=== PATIENT | male | born 1975 | race Caucasian/White ===

== ENCOUNTER 2022-06-08 14:20 | Outpatient (AMB) | payer MEDICARE, MEDICAID, SELFPAY ==
--- NOTE | 2022-06-04 16:04 | MHC.OFFVIS ---
Intake Intake Visit Reasons: Erectile dysfunction Intake Note: New patient is present for erectile dysfunction Boatwright Required: No Allergies No Known Allergies Allergy (Unverified 08/15/23 11:23) HPI HPI Comments History of Present Illness Details Luis Armando rodriguez [place]orese-speaking male. He is a patient of . He is seen for the following urologic conditions - erectile dysfunction setting of diabetes - low libido - chronic opiate therapy [place]se translation provided by qualified neuropsychology medical consultant Erectile dysfunction Progressive Unable to maintain erection Trial low-dose daily tadalafil Three-month follow-up [facility] Medical History (System 08/15/23 @ 11:23 by Larissa Wiggins) Diabetes High cholesterol HTN (hypertension), benign Surgical History (System 08/15/23 @ 11:23 by Larissa Wiggins) H/O lumbar discectomy Hx of tonsillectomy Review of Systems Const Denies chills and Denies fever(s) Card Reports no additional complaints and Denies syncope Resp Denies cough GI Denies abdominal pain and Denies heartburn Reports as per HPI and Denies change in libido Neuro Denies syncope Psych Denies change in libido Endo Denies change in libido Physical Exam Const General: cooperative, healthy appearing, comfortable and no acute distress Orientation/consciousness: patient oriented x3 HEENT Face and sinus: Yes normal facial exam Mouth: moist mucous membranes Neck Neck: Yes normal visual inspection, Yes full ROM and Yes trachea midline Chest Chest palpation & inspection: normal inspection of the chest Resp Effort & Inspection: normal respiratory effort, able to speak in complete sentences and no respiratory distress GI Inspection: Yes normal to inspection Back/Spine/Pelvis Cervical Spine: normal cervical lordosis Thoracic/Lumbar Spine: thoracic and lumbar spine normal to inspection Skin General skin exam: no rashes or lesions noted Neuro General: patient oriented x3, gait normal, tone normal and moves all extremities Extrem General: Yes normal to inspection and Yes capillary refill normal Assessment & Plan Assessment & Plan (1) Erectile dysfunction associated with type 2 diabetes mellitus: Code(s): E11.69 - Type 2 diabetes mellitus with other specified complication; N52.1 - Erectile dysfunction due to diseases classified elsewhere Plan Three-month follow-up Orders: Orders Testosterone, Free/Total 06/08/22 E11.69 - Type 2 diabetes mellitus with other specified complication, N52.1 - Erectile dysfunction due to diseases classified elsewhere Estradiol Ultra Sensitive 06/08/22 E11.69 - Type 2 diabetes mellitus with other specified complication, N52.1 - Erectile dysfunction due to diseases classified elsewhere Hemoglobin A1c 06/08/22 E11.69 - Type 2 diabetes mellitus with other specified complication, N52.1 - Erectile dysfunction due to diseases classified elsewhere Medications: New tadalafil 20 mg PO ONCE PRN 30 tabs 0RF sexual activity 30 days E11.69 - Type 2 diabetes mellitus with other specified complication, N52.1 - Erectile dysfunction due to diseases classified elsewhere tadalafil 5 mg PO DAILY 90 tabs 0RF sexual activity 90 days E11.69 - Type 2 diabetes mellitus with other specified complication, N52.1 - Erectile dysfunction due to diseases classified elsewhere Patient Instructions: Imaging studies, laboratory and physical exam results were discussed and reviewed in detail. No major barriers to patient understanding were identified. An opportunity to ask questions regarding the treatment plan was provided. All questions were answered. The patient expressed understanding and agreement with the above treatment plan. The patient is aware they should contact our office by phone for worsening of their current condition or the appearance of new urologic symptoms. Compliance is encouraged with any medications and followup testing that is ordered. It is a privilege to participate in the urologic care of your patient. If you have any questions or concerns regarding treatment for the above conditions, or other urologic issues, please do not hesitate to contact me. The office telephone contact is [phone]. This note is constructed using voice recognition software. While every effort has been made to ensure accuracy fire marshal errors may have been included. Yours sincerely, Dr John Kumar MD, [facility] - Urology Providers of Expert, Compassionate Care for the Genitourinary System Coding Level of Care Code New Pt Level 4 (49402) Diagnoses Erectile dysfunction associated with type 2 diabetes mellitus E11.69; N52.1
--- OUTSIDE RECORDS SUMMARY | 2022-06-08 14:23 | XMS_ITS | Continuity of Care Document ---
:1975 Author Organization [facility] Address [address] [place] [address]- Care Team Providers Name Role Phone Almaz Velásquez MD Primary Care Physician [place] [facility] [place] 02/25/20 - 03/26/20 [facility] [address] [place] [address]- [facility] Attending Physician: Bertin Menchaca Admitting Physician: Bertin Menchaca Referring Physician: Bertin Menchaca Allergies, Adverse Reactions, Alerts Substance Reaction Severity Status NKA Active Medications Lotrimin AF 1% topical cream 1 application, Topically, 2 times a day, apply to affected area, # 30 Gm, 0 Refills, Maintenance, 05/09/16 16:35:30, Cream Start Date: 05/09/16 Status: Ordered
== END 2022-06-08 14:59 | disposition home or self-care (01) ==
LOC: HO.HUSH 14:20
PROVIDERS: PCP Registered Nurse; Visit Provider Urology
DX: E11.69 Type 2 diabetes mellitus with other specified complication (principal); N52.1 Erectile dysfunction due to diseases classified elsewhere
CPT/HCPCS: 99204; 99499

== ENCOUNTER → 2022-06-08 14:20 | Outpatient (BNVA) | payer MEDICARE, MEDICAID, SELFPAY | PROVIDERS: PCP Registered Nurse; Visit Provider Urology | DX: E11.69 Type 2 diabetes mellitus with other specified complication (principal); N52.1 Erectile dysfunction due to diseases classified elsewhere | CPT/HCPCS: 99202 ==

== ENCOUNTER 2022-11-27 11:44 | Outpatient (REF) | payer MEDICARE, MEDICAID, SELFPAY ==
[2022-11-27 12:35] LABS: Estimated Average Glucose 143 mg/dL; Hemoglobin A1c % 6.6 %
[2022-12-02 23:14] LABS: Estradiol Ultra Sensitive 27 pg/mL (< OR = 29)
[2022-12-04 14:33] LABS: Testosterone, Free 46.5 pg/mL (35.0-155.0); Testosterone, Total 229 ng/dL (250-1100)
== END 2022-11-27 11:45 | disposition home or self-care (01) ==
LOC: HO.LAB 11:44
PROVIDERS: PCP Registered Nurse; Visit Provider Urology
DX: E11.69 Type 2 diabetes mellitus with other specified complication (principal); N52.1 Erectile dysfunction due to diseases classified elsewhere
CPT/HCPCS: 36415; 82670; 83036; 84402; 84403

== ENCOUNTER → 2022-12-04 15:27 | Outpatient (BNVA) | payer MEDICARE, MEDICAID, SELFPAY | PROVIDERS: PCP Registered Nurse; Visit Provider Urology | DX: E11.69 Type 2 diabetes mellitus with other specified complication (principal); N52.1 Erectile dysfunction due to diseases classified elsewhere; Z79.891 Long term (current) use of opiate analgesic | CPT/HCPCS: Q3014 ==

== ENCOUNTER 2023-05-07 08:50 | Outpatient (REF) | payer MEDICARE, MEDICAID, SELFPAY ==
[2023-05-09 08:25] LABS: RPR Rapid Plasma Reagin NON-REACTIVE (NON-REACTIVE)
[2023-05-10 14:18] LABS: HCV Log PCR <1.18 NOT DETECTED Log IU/mL (NOT DETECTED); HepC Viral Load <15 NOT DETECTED IU/mL (NOT DETECTED)
== END 2023-05-07 08:51 | disposition home or self-care (01) ==
LOC: HO.CHCLDS 08:50
PROVIDERS: Visit Provider Registered Nurse
DX: Z00.00 Encounter for general adult medical examination without abnormal findings (principal); Z11.4 Encounter for screening for human immunodeficiency virus [HIV]; E78.00 Pure hypercholesterolemia, unspecified; E11.9 Type 2 diabetes mellitus without complications; I10 Essential (primary) hypertension
CPT/HCPCS: 36415; 80053; 80061; 82043; 82570; 84443; 85025; 86592; 87389; 87522

== ENCOUNTER 2023-09-17 08:35 | Outpatient (REF) | payer MEDICARE, MEDICAID, SELFPAY ==
[2023-09-17 12:00] LABS: Alanine Aminotransferase 22 U/L (0-40); Albumin Level 4.2 g/dL (3.5-5.0); Alkaline Phosphatase 55 U/L (39-117); Aspartate Amino Transferase 22 U/L (5-37); Bilirubin Direct 0.2 mg/dL (0.0-0.5); Bilirubin Total 0.3 mg/dL (0.0-1.0); Cholesterol 135 mg/dL (<200); HDL Cholesterol 47 mg/dL (>40); LDL Cholesterol Calculated 63 mg/dL (<100); Total Protein 7.9 g/dL (6.5-8.0); Triglycerides 125 mg/dL (<150)
[2023-09-22 09:09] LABS: Testosterone, Free 34.6 pg/mL (35.0-155.0); Testosterone, Total 184 ng/dL (250-1100)
== END 2023-09-17 08:36 | disposition home or self-care (01) ==
LOC: HO.HHCL 08:35
PROVIDERS: Registered Nurse; Visit Provider Urology
DX: E11.69 Type 2 diabetes mellitus with other specified complication (principal); N52.1 Erectile dysfunction due to diseases classified elsewhere; E78.00 Pure hypercholesterolemia, unspecified
CPT/HCPCS: 36415; 80061; 80076; 84402; 84403

== ENCOUNTER 2023-09-26 11:06 | Outpatient (AMB) | payer MEDICARE, MEDICAID, SELFPAY ==
--- NOTE | 2023-09-26 11:08 | A.OFFVIS_ITS ---
Intake Intake Visit Reasons: 6m/Testo(pending)Confirmed Intake Note: Patient presents today for a telehealth follow-up Meds- Tadalafil Allergies to Antibiotic- No Known Allergies Blood Thinner- None Cash Applications Analyst Required: Yes Allergies No Known Allergies Allergy (Verified 09/26/23 11:11) HPI HPI Comments History of Present Illness Details Luis Armando is a pleasant Welsh-speaking male. He is a patient of . He is seen for the following urologic conditions - erectile dysfunction setting of diabet es - low libido - chronic opiate therapy Telemedicine Evaluation 15 min Consultation [employer] Cot[employer] Video attempted Welsh translation provided by qualified biomedical equipment support specialist 6 month f/u Good effect with daily tadalafil for erections Testosterone remains depressed Erectile dysfunction in setting of diabetes Progressive Concurrent diagnosis includes chronic opiate therapy Diabetic medications include metformin and Trulicity Laboratory - T 12/18 230 F 46 HBA1c 6.6%, 09/21 T 185 FT 35 Initial therapy 5 mg daily tadalafil 20 mg on demand PFSH Medical History Diabetes High cholesterol HTN (hypertension), benign Surgical History H/O lumbar discectomy Hx of tonsillectomy Review of Systems Const All systems reviewed & are unremarkable except as noted in HPI and below Reports no additional complaints Resp Reports no additional complaints GI Reports no additional complaints Reports as per HPI Musc Reports no additional complaints Physical Exam Telemedicine evaluation Appropriate responses Regular breathing rate and rhythm HEENT Head: Yes normal to inspection Ears: hearing grossly normal bilaterally Eyes General: appearance normal, both eyes and all related structures Neck Neck: Yes normal visual inspection Chest Chest palpation & inspection: normal inspection of the chest Resp Effort & Inspection: normal respiratory effort and able to speak in complete sentences Assessment & Plan Assessment & Plan (1) Erectile dysfunction associated with type 2 diabetes mellitus: Code(s): E11.69 - Type 2 diabetes mellitus with other specified complication; N52.1 - Erectile dysfunction due to diseases classified elsewhere Plan Six-month follow-up lab work Orders: Orders Testosterone, Total 06/04/23 E11.69 - Type 2 diabetes mellitus with other specified complication, N52.1 - Erectile dysfunction due to diseases classified elsewhere Testosterone, Total 6 Months E11.69 - Type 2 diabetes mellitus with other specified complication, N52.1 - Erectile dysfunction due to diseases classified elsewhere Medications: Refilled tadalafil 20 mg PO ONCE 30 days PRN 30 tabs 5RF sexual activity E11.69 - Type 2 diabetes mellitus with other specified complication, N52.1 - Erectile dysfunction due to diseases classified elsewhere tadalafil 5 mg PO DAILY 90 days 90 tabs 1RF sexual activity E11.69 - Type 2 diabetes mellitus with other specified complication, N52.1 - Erectile dysfunction due to diseases classified elsewhere Patient Instructions: Imaging studies, laboratory and physical exam results were discussed and reviewed in detail. No major barriers to patient understanding were identified. An opportunity to ask questions regarding the treatment plan was provided. All questions were answered. The patient expressed understanding and agreement with the above treatment plan. The patient is aware they should contact our office by phone for worsening of their current condition or the appearance of new urologic symptoms. Compliance is encouraged with any medications and followup testing that is ordered. It is a privilege to participate in the urologic care of your patient. If you have any questions or concerns regarding treatment for the above conditions, or other urologic issues, please do not hesitate to contact me. The office telephone contact is [phone]. This note is constructed using voice recognition software. While every effort has been made to ensure accuracy shank sander errors may have been included. Yours sincerely, Dr John Kumar MD, [facility] - Urology Providers of Expert, Compassionate Care for the Genitourinary System Telehealth Telehealth Location of provider rendering services: practice address Location of patient: address on file Patient Identification confirmed using: Name, : Yes Telehealth method: video Patient verbally consented to treatment: Yes Patient verbally consented to billing insurance company: Yes Patient informed of any privacy concerns related to visit: Yes Coding Level of Care Code Est Pt Level 3 (50280) Diagnoses Erectile dysfunction associated with type 2 diabetes mellitus E11.69; N52.1
== END 2023-09-26 14:53 | disposition home or self-care (01) ==
LOC: HO.HUSH 11:07
PROVIDERS: PCP Registered Nurse; Visit Provider Urology
DX: E11.69 Type 2 diabetes mellitus with other specified complication (principal); N52.1 Erectile dysfunction due to diseases classified elsewhere
CPT/HCPCS: 99213

== ENCOUNTER → 2023-09-26 11:06 | Outpatient (BNVA) | payer MEDICARE, MEDICAID, SELFPAY | PROVIDERS: PCP Registered Nurse; Visit Provider Urology | DX: E11.69 Type 2 diabetes mellitus with other specified complication (principal); N52.1 Erectile dysfunction due to diseases classified elsewhere; Z79.84 Long term (current) use of oral hypoglycemic drugs; Z79.85 Long-term (current) use of injectable non-insulin antidiabetic drugs | CPT/HCPCS: 99212 ==

== ENCOUNTER 2023-11-25 11:35 | Outpatient (REF) | payer MEDICARE, MEDICAID, SELFPAY ==
[2023-11-28 08:58] LABS: TS Negative Control Passed; TS Panel A 0; TS Panel B 0; TS Positive Control Passed; TSpotTB Negative (Negative)
== END 2023-11-25 11:36 | disposition home or self-care (01) ==
LOC: HO.CHCLDS 11:35
PROVIDERS: Visit Provider Registered Nurse
DX: Z11.1 Encounter for screening for respiratory tuberculosis (principal)
CPT/HCPCS: 36415; 86481

== ENCOUNTER 2024-03-27 11:17 | Outpatient (AMB) | payer MEDICARE, MEDICAID, SELFPAY ==
--- NOTE | 2024-03-27 11:35 | A.OFFVIS_ITS ---
Intake Visit Reasons: 6m follow up(No labs done) Intake Note: Patient is Present for Follow Up Urology Medication:Tadalafil Antibiotic Allergies:none Blood Thinners:none Stitching Department Supervisor Required: Yes Allergies No Known Allergies Allergy (Verified 09/26/23 11:11) HPI Comments Details: Luis Armando is a pleasant Afghan-speaking male. He is a patient of . He is seen for the following urologic conditions - erectile dysfunction setting of diabetes - low libido - chronic opiate therapy Telemedicine Evaluation 15 min Consultation [employer] Coty Video attempted Afghan translation provided by qualified chief medical officer 6 month f/u Good effect with daily tadalafil for erections Testosterone remains depressed Trial testosterone gel Erectile dysfunction in setting of diabetes Progressive Concurrent diagnosis includes chronic opiate therapy Diabetic medications include metformin and Trulicity Laboratory - T 12/18 230 F 46 HBA1c 6.6%, 09/21 T 185 FT 35 Initial therapy 5 mg daily tadalafil 20 mg on demand PFSH Medical History Diabetes High cholesterol HTN (hypertension), benign Surgical History H/O lumbar discectomy Hx of tonsillectomy Assessment & Plan Assessment & Plan (1) Hypogonadism in male: Code(s): E29.1 - Testicular hypofunction Category: Medical (2) Erectile dysfunction associated with type 2 diabetes mellitus: Code(s): E11.69 - Type 2 diabetes mellitus with other specified complication; N52.1 - Erectile dysfunction due to diseases classified elsewhere Category: Medical Plan Trial testosterone gel Three-month follow-up labs Orders: Orders Testosterone, Total 3 Months E29.1 - Testicular hypofunction Medications: New testosterone 1 packet transdermal DAILY 150 grams 5RF 30 days E29.1 - Testicular hypofunction Coding Level of Care Code Est Pt Level 4 (05823) Diagnoses Hypogonadism in male E29.1 Erectile dysfunction associated with type 2 diabetes mellitus E11.69; N52.1
== END 2024-03-27 12:17 | disposition home or self-care (01) ==
PROVIDERS: PCP Registered Nurse; Visit Provider Urology
DX: E29.1 Testicular hypofunction (principal); E11.69 Type 2 diabetes mellitus with other specified complication; N52.1 Erectile dysfunction due to diseases classified elsewhere
CPT/HCPCS: 99214

== ENCOUNTER → 2024-03-27 11:17 | Outpatient (BNVA) | payer MEDICARE, MEDICAID, SELFPAY | PROVIDERS: PCP Registered Nurse; Visit Provider Urology | DX: E29.1 Testicular hypofunction (principal); E11.69 Type 2 diabetes mellitus with other specified complication; N52.1 Erectile dysfunction due to diseases classified elsewhere; R68.82 Decreased libido; Z79.891 Long term (current) use of opiate analgesic; Z79.84 Long term (current) use of oral hypoglycemic drugs; Z79.85 Long-term (current) use of injectable non-insulin antidiabetic drugs | CPT/HCPCS: 99212 ==

== ENCOUNTER 2024-06-05 07:18 | Outpatient (REF) | payer MEDICARE, SELFPAY ==
[2024-06-10 15:24] LABS: Testosterone, Total 289 ng/dL (250-1100)
== END 2024-06-05 07:19 | disposition home or self-care (01) ==
LOC: HO.LAB 07:18
PROVIDERS: PCP Registered Nurse; Visit Provider Urology
DX: E11.69 Type 2 diabetes mellitus with other specified complication (principal); N52.1 Erectile dysfunction due to diseases classified elsewhere
CPT/HCPCS: 36415; 84403

== ENCOUNTER 2024-06-16 15:09 | Outpatient (AMB) | payer MEDICARE, MEDICAID, SELFPAY ==
--- NOTE | 2024-06-16 16:01 | A.OFFVIS_ITS ---
Intake Visit Reasons: 3m/Testosterone(set) Intake Note: Patient is present for Testosterone follow up Urology Med: Tadalafil, Testosterone Antibiotic Allergy: None Blood Thinner: None LAB: 06/05/2024 - Total Testosterone- 289 [facility] Practitioner Required: No Accompanied by: Self / Same As Patient Allergies No Known Allergies Allergy (Verified 06/16/24 16:05) HPI Comments Details: Luis Armando is a pleasant Barbadian-speaking male. He is a patient of . He is seen for the following urologic conditions - erectile dysfunction setting of diabetes - low libido - chronic opiate therapy Barbadian translation provided by qualified medical practice assistant 6 month f/u Feels significantly improved on testosterone 1 packet daily Represcribed for 6 months Good effect with daily tadalafil for erections Testosterone remains depressed - in setting of diabetes, chronic opioid use Erectile dysfunction in setting of diabetes Progressive Concurrent diagnosis includes chronic opiate therapy Diabetic medications include metformin and Trulicity Laboratory - T 12/18 230 F 46 HBA1c 6.6%, 09/21 T 185 FT 35, 06/21 T 290 Initial therapy 5 mg daily tadalafil 20 mg on demand [facility] Medical History Diabetes High cholesterol HTN (hypertension), benign Surgical History H/O lumbar discectomy Hx of tonsillectomy Review of Systems Const Denies chills and Denies fever(s) Card Reports no additional complaints and Denies syncope Resp Denies cough GI Denies abdominal pain and Denies heartburn Reports as per HPI and Denies change in libido Neuro Denies syncope Psych Denies change in libido Endo Denies change in libido Physical Exam Const General: cooperative, healthy appearing, comfortable and no acute distress Orientation/consciousness: patient oriented x3 HEENT Face and sinus: Yes normal facial exam Mouth: moist mucous membranes Neck Neck: Yes normal visual inspection, Yes full ROM and Yes trachea midline Chest Chest palpation & inspection: normal inspection of the chest Resp Effort & Inspection: normal respiratory effort, able to speak in complete sentences and no respiratory distress GI Inspection: Yes normal to inspection Back/Spine/Pelvis Cervical Spine: normal cervical lordosis Thoracic/Lumbar Spine: thoracic and lumbar spine normal to inspection Skin General skin exam: no rashes or lesions noted Neuro General: patient oriented x3, gait normal, tone normal and moves all extremities Extrem General: Yes normal to inspection and Yes capillary refill normal Assessment & Plan Assessment & Plan (1) Erectile dysfunction associated with type 2 diabetes mellitus: Code(s): E11.69 - Type 2 diabetes mellitus with other specified complication; N52.1 - Erectile dysfunction due to diseases classified elsewhere Category: Medical (2) Hypogonadism in male: Code(s): E29.1 - Testicular hypofunction Category: Medical Plan Six-month follow-up lab work office Orders: Orders Prostate Specific Antigen 6 Months E29.1 - Testicular hypofunction Testosterone, Total 6 Months E29.1 - Testicular hypofunction Complete Blood Count no Diff 6 Months E29.1 - Testicular hypofunction Patient Instructions: Imaging studies, laboratory and physical exam results were discussed and reviewed in detail. No major barriers to patient understanding were identified. An opportunity to ask questions regarding the treatment plan was provided. All questions were answered. The patient expressed understanding and agreement with the above treatment plan. The patient is aware they should contact our office by phone for worsening of their current condition or the appearance of new urologic symptoms. Compliance is encouraged with any medications and followup testing that is ordered. It is a privilege to participate in the urologic care of your patient. If you have any questions or concerns regarding treatment for the above conditions, or other urologic issues, please do not hesitate to contact me. The office telephone contact is [phone]. This note is constructed using voice recognition software. While every effort has been made to ensure accuracy fruit culler errors may have been included. Yours sincerely, Dr John Kumar MD, [facility] - Urology Providers of Expert, Compassionate Care for the Genitourinary System Coding Level of Care Code Est Pt Level 3 (51039) Diagnoses Erectile dysfunction associated with type 2 diabetes mellitus E11.69; N52.1 Hypogonadism in male E29.1
== END 2024-06-16 16:55 | disposition home or self-care (01) ==
PROVIDERS: PCP Registered Nurse; Visit Provider Urology
DX: E11.69 Type 2 diabetes mellitus with other specified complication (principal); N52.1 Erectile dysfunction due to diseases classified elsewhere; E29.1 Testicular hypofunction
CPT/HCPCS: 99213

== ENCOUNTER → 2024-06-16 15:09 | Outpatient (BNVA) | payer MEDICARE, SELFPAY | PROVIDERS: PCP Registered Nurse; Visit Provider Urology | DX: E11.69 Type 2 diabetes mellitus with other specified complication (principal); N52.1 Erectile dysfunction due to diseases classified elsewhere; E29.1 Testicular hypofunction | CPT/HCPCS: 99212 ==

== ENCOUNTER 2024-12-03 07:12 | Outpatient (REF) | payer MEDICARE, MEDICAID, SELFPAY ==
--- OUTSIDE RECORDS SUMMARY | 2024-12-03 07:13 | XMS_ITS | Encounter Summary ---
Author Organization [employer] Address [address] [place] [address] Care Team Providers Care Bark Grinder Name Role Phone Almaz Osuna Primary Care Provider [phone] John Kumar MD Unavailable [phone] Reason for Visit * Reason Comments Med Refill Encounter Details Date Type Department Care Team ([facility] Contact Info) Description 12/25/2022 Refill [facility] MEDICINE [address] [place] [address] Almaz Osuna FNP [address] [place] [address] Lumbar disc herniation Social History Tobacco Use Types Packs/Day Years Used Date Smoking Tobacco: Never Smokeless Tobacco: Never Alcohol Use Standard Drinks/Week Comments Yes 0 (1 standard drink = 0.6 oz pur e alcohol) Rare occassions Sex and Gender Information Value Date Recorded Sex Assigned at Male 05/28/2022 10:15 AM EDT Legal Sex Male 10:15 AM EDT Gender Identity Male 05/28/2022 10:15 AM EDT Sexual Orientation Straight 05/28/2022 10 :15 AM EDT COVID-19 Exposure Response Date Recorded In the last 10 days, have yo u been in contact with someone who was confirmed or suspected to have Coronavirus/COVID-19? No / Unsure 12/05/2022 8:44 AM EDT documented as of this encounter Plan of Treatment Upcoming Encounters Date Type Department Care Team ([facility] Contact Info) Description 12/03/2024 11:00 AM EDT Clinical Support [facility] CH[facility] MED & PEDS [address] [place] [address] Nasrin Skinner, RN [address] [place] [address] 01/22/2025 2:30 PM EDT Office Visit [facility] MED [facility] PEDS [address] [place] [address] Almaz Osuna FNP [address] [place] [address] 05/07/2025 8:00 AM EDT Office Visit [facility] ADULT DENTAL [address] [place] [address] Dora, Mariaa [address] [place] [address] documented as of this encounter Visit Diagnoses Diagnosis Lumbar disc herniation Displacement of lumbar intervertebral disc without myelopathy documented in this encounter Care Teams Bark Grinder Relationship Specialty Start Date End Date Almaz Osuna FNP [address] [place] [address] PCP - General Family Medicine 03/27/22 John Kumar MD [address] [place] [address] Urology 09/07/24 documented as of this encounter
--- OUTSIDE RECORDS SUMMARY | 2024-12-03 07:13 | XMS_ITS | Clinical Summary ---
Author Organization [facility], Address [address] [place] [address] [place] [address] Phone Care Team Providers Care Configuration Consultant Name Role Phone Ally Parra NP Primary Care Provider [phone] Allergies No known active allergies Medications aspirin 81 MG tablet Take 81 mg by mouth 1 (one) time each day Active hydroCHLOROthia zide (HYDRODIURIL) 25 MG tablet Take 25 mg by mouth 1 (one) time each day Active lisinopril (PRINIVIL,ZESTR IL) 40 MG tablet Take 40 mg by mouth 1 (one) time each day Active metFORMIN (GLUCOPHAGE) 1000 MG tablet Take 1,000 mg by mouth 2 (two) times a day with meals Active metoprolol succinate XL (TOPROL-XL) 200 MG 24 hr tablet Take 200 mg by mouth 1 (one) time each day Do not crush or chew. Active omeprazole (PriLOSEC) [address] capsule Take 20 mg by mouth 1 (one) time each day Do not crush or chew. Active pravastatin (PRAVACHOL) 80 MG tablet Take 80 mg by mouth 1 (one) time each day Active amLODIPine (NORVASC) 10 MG tablet Take 10 mg by mouth 1 (one) time each day Active gabapentin (NEURONTIN) 100 MG capsule Take 100 mg by mouth 3 (three) times a day Active oxyCODONE-aceta minophen (PERCOCET) 10-325 MG per tablet Take 1 tablet by mouth every 6 (six) hours if needed for moderate pain Active fluticasone (FLONASE) 50 MCG/ACT nasal spray Administer 1 spray into each nostril 1 (one) time each day Active Active Problems Problem Noted Date Diagnosed Date Chronic kidney disease, stage 2 (mild) 0 Essential (primary) hypertension 11/13/2019 Type 2 diabetes mellitus without complication Resolved Problems Problem Noted Date Diagnosed Date Resolved Date Obesity 11/17/2019 03/27/2021 Hypercholesterolemia 11/13/2019 021 Social History Tobacco Use Types Packs/Day Years Used Date Smoking Tobacco: Never Smokeless Tobacco: Never Alcohol Use Standard Drinks/Week Comments Yes 0 (1 standard drink = 0.6 oz pur e alcohol) 6pk monthly Sex and Gender Information Value Date Recorded Sex Assigned at Not on file Legal Sex Male 10:15 AM EST Gender Identity Not on file Sexual Orientation Not on file Plan of Treatment Health Maintenance Due Date Last Done Comments Hepatitis B Vaccine (1 of 3 - 19+ 3-dose series) 04/26 Pneumococcal Vaccine: 50+ Years (1 of 2 - PCV) 992 Diabetes: Hemoglobin A1C 11/13/2019 Diabetes: Ophthalmology Exam 11/13/2019 Diabetes: Pedal Pulse Checked 11/13/2019 Diabetes: Sensory Foot Exam 11/13/2019 Diabetes: Visual Foot Exam 11/13/2019 Colorectal Cancer Screening: Annual FOBT 2022 Colorectal Cancer Screening: Colonoscopy 2022 Colorectal Cancer Screening: Sigmoidoscopy 2022 Influenza Vaccine (Season Ended) 2025 Insurance Medicare Medicaid [place] Care Teams Configuration Consultant Relationship Specialty Start Date End Date Ally Parra NP PCP - General Nurse Practitioner 10/01/19
--- OUTSIDE RECORDS SUMMARY | 2024-12-03 07:13 | XMS_ITS | Encounter Summary ---
Author Organization [employer] Address [address] [place] [address] Care Team Providers Care Automatic Maintainer Name Role Phone Almaz Osuna Primary Care Provider John Kumar MD Unavailable [phone] Reason for Visit * Reason Comments Med Refill Encounter Details Date Type Department Care Team ([facility] Contact Info) Description 10/26/2022 Refill [facility] MEDICINE [address] [place] [address] Almaz Osuna FNP [address] [place] [address] Dorsalgia Social History Tobacco Use Types Packs/Day Years [...] suspected to have Coronavirus/COVID-19? No / Unsure 10/22/2022 8:38 AM EDT documented as of this encounter Plan of Treatment Upcoming Encounters Date Type Department Care Team ([facility] Contact Info) Description 12/03/2024 11:00 AM EDT Clinical Support [facility] CH[facility] MED & PEDS [address] [place] [address] Nasrin Skinner, RN [address] [place] [address] 01/22/2025 2:30 PM EDT Office Visit [facility] MED & PEDS [address] [place] [address] Almaz Osuna FNP [address] [place] [address] 05/07/2025 8:00 AM EDT Office Visit [facility] ADULT DENTAL [address] [place] [address] Dora, Mariaa [address] [place] [address] documented as of this encounter Visit Diagnoses Diagnosis Dorsalgia Pain in thoracic spine documented in this encounter Care Teams Automatic Maintainer Relationship Specialty Start Date End Date Almaz Osuna FNP [address] [place] [address] PCP - General Family Medicine 03/27/22 John Kumar MD [address] [place] [address] Urology 09/07/24 documented as of this encounter
--- OUTSIDE RECORDS SUMMARY | 2024-12-03 07:13 | XMS_ITS | Clinical Summary ---
Author Organization Molly Queralt [facility] ity Address [address] [place] [address] Care Team Providers Care Cross Country/Track And Field Coach Name Role Phone Unavailable Primary Care Provider Unavailabl e Social History Tobacco Use Types Packs/Day Years Used Date Smoking Tobacco: Never Assessed Sex and Gender Information Value Date Recorded Sex Assigned at Not on file Legal Sex Male 8:17 PM EST Gender Identity Not on file Sexual Orientation Not on file Plan of Treatment Health Maintenance Due Date Last Done Comments DTaP,Tdap,and Td Vaccines (1 - Tdap) 1992 Hepatitis B Vaccines (1 of 3 - 19+ 3-dose series) 1992 Pneumococcal Vaccine: 50+ Ye ars (1 of 1 - PCV) 2023 Zoster Vaccines (1 of 2) 2023 COVID-19 Vaccine (1 - 2023-2 5 season) 2024 Influenza Vaccine (Season Ended) 2025 HIB Vaccines Aged Out No longer eligi ble based on patient's age to complete this topic HPV Vaccines Aged Out No longer eligi ble based on patient's age to complete this topic Hepatitis A Vaccines Aged Out No long er eligible based on patient's age to complete this topic IPV Vaccines Aged Out No longer eligi ble based on patient's age to complete this topic MMR Vaccines Aged Out No longer eligi ble based on patient's age to complete this topic Meningococcal ACWY Vaccine Aged Out N o longer eligible based on patient's age to complete this topic Meningococcal B Vaccine Aged Out No l onger eligible based on patient's age to complete this topic Pneumococcal Vaccine: Pediat rics (0 to 5 Years) and At-Risk Patients (6 to 64 Years) Aged Out No longer eligible b ased on patient's age to complete this topic RSV Immunization Patients Un javy 20 months Aged Out No longer eligible b ased on patient's age to complete this topic Varicella Vaccines Aged Out No longer eligible based on patient's age to complete this topic
--- OUTSIDE RECORDS SUMMARY | 2024-12-03 07:14 | XMS_ITS | Encounter Summary ---
Author Organization [employer] Address [address] [facility] 7t [place] [address] Care Team Providers Care Welfare Project Manager Name Role Phone Almaz Osuna Primary Care Provider [phone] John Kumar MD Unavailable [phone] Encounter Details Date Type Department Care Team ([facility] st Contact Info) Description 03/27/2024 Orders Only [facility] CHC MED & PEDS [address] [place], [place] [phone] Almaz Osuna FNP [address] [place] [address] Lumbar disc herniation Social History Tobacco Use Types Packs/Day Years Used Date Smoking Tobacco: Never Passive Smoke Exposure: Never Smokeless Tobacco: Never Alcohol Use Standard Drinks/Week Comments Yes 0 (1 standard drink = 0.6 oz pur e alcohol) Rare occassions Depression Answer Date Recorded Patient Health Questionnaire-9 Score 2 04/29/2023 Housing Stability Answer Date Recorded What is your housing situation today? I have carlota patrick 05/15/[address] you li ve. Do you have problems with any of the following? None of the above 05/15/2023 Food Insecurity Answer Date Recorded Within the past 12 months, y ou worried that your food would run out before you got money to buy more: Never True 05/15/2023 Within the past 12 months,th e food you bought just didn't last and you didn't have enough money to get more: Never True Transportation Answer Date Recorded In the past 12 months, has l ack of transportation kept you from medical appts, meetings, work or from getting things needed for daily living? No 05/15/2023 Utilities Answer Date Recorded In the past 12 months, has t he electric, gas, oil or water company threatened to shut off services in your home? No 05/15/2023 Depression Answer Date Recorded Patient Health Questionnaire-2 Score 0 04/29/2023 Sex and Gender Information Value Date Recorded Sex Assigned at Male 05/28/2022 10:15 AM EDT Legal Sex Male 10:15 AM EDT Gender Identity Male 05/28/2022 10:15 AM EDT Sexual Orientation Straight 05/28/2022 10 :15 AM EDT documented as of this encounter Plan of Treatment Upcoming Encounters Date Type Department Care Team (Late st Contact Info) Description 12/03/2024 11:00 AM EDT Clinical Support [facility] MED & PEDS [address] [place] [address] Nasrin Skinner, RN [address] [place] [address] 01/22/2025 2:30 PM EDT Office Visit [facility] MED & PEDS [address] [place] [address] Almaz Osuna, RULING MACHINE SET UP OPERATOR [address] [place] [address] 05/07/2025 8:00 AM EDT Office Visit [facility] ADULT DENTAL [address] [place] [address] Dora, Mariaa [address] [place] [address] documented as of this encounter Procedures Procedure Name Priority Date/Time Associated Diagnosis Comments TESTOSTERONE, TOTAL, MALES (ADULT), IA Routine 06/05/2024 7:31 AM EST Lumbar disc herniation documented in this encounter Results * Testosterone, Total, males (Adult), IA (06/05/2024 7:31 AM EST) Testosterone, Total 289 250 - 1100 ng/dL [facility] Comment:For additional infor stephane, please refer tohttp://education.Inspherion/faq/[email or web address](This link is being provided for informational/educational purposes only.)This test was developed and its analytical performancecharacteristics have been determined by [employer] [place], [place]. It hasnot been cleared or approved by the U.S. Food and DrugAdministration. This assay has been validated pursuantto the CLIA regulations and is used for clinicalpurposes.THIS TEST WAS PERFORMED AT:[employer] [place] [address]IDSUWFMTERRI BECKETT MD,PHD 06/05/2024 7:31 AM EST 06/05/2024 7:34 AM EST us Generic External Data Provider LAB BLOOD ORDERAB LES Final Result [facility] [address] [place] [address] [phone] documented in this encounter Visit Diagnoses Diagnosis Lumbar disc herniation Displacement of lumbar intervertebral disc without myelopathy documented in this encounter Additional Health Concerns Assessment Noted Time PHQ-9 Depression Total Score: 2 04/29/20 23 1:49 PM EDT documented as of this encounter Care Teams Welfare Project Manager Relationship Specialty Start Date End Date Almaz Osuna FNP [address] [place] [address] PCP - General Family Medicine 03/27/22 John Kumar MD [address] [place] [address] Urology 09/07/24 documented as of this encounter
--- OUTSIDE RECORDS SUMMARY | 2024-12-03 07:14 | XMS_ITS | Encounter Summary ---
Author Organization [employer] Address [address] [facility] 7t [place] [address] Care Team Providers Care Photovoltaic Power Systems Engineer Name Role Phone Almaz Osuna Primary Care Provider [phone] John Kumar MD Unavailable [phone] Encounter Details Date Type Department Care Team (Latest Contact Info) Description 09/29/2018 Abstract [facility] CONVERSIONS Dental, Provider, DDS Social History Tobacco Use Types Packs/Day Years [...] Upcoming Encounters Date Type Department Care Team ( st Contact Info) Description 12/03/2024 11:00 AM EDT Clinical Support [facility] MED & PEDS [address] [place] [address] Nasrin Skinner, RN [address] [place] [address] 01/22/2025 2:30 PM EDT Office Visit [facility] MED & PEDS [address] [place] [address] Almaz Osuna FNP [address] [place] [address] 05/07/2025 8:00 AM EDT Office Visit [facility] ADULT DENTAL [address] [place] [address] Mariaa John [address] [place] [address] documented as of this encounter Visit Diagnoses Not on filedocumented in this encounter Care Teams Photovoltaic Power Systems Engineer Relationship Specialty Start Date End Date Almaz Osuna FNP [address] [place] [address] PCP - General Family Medicine 03/27/22 John Kumar MD [address] [place] [address] Drive [address] [place] [address] Urology 09/07/24 documented as of this encounter
--- OUTSIDE RECORDS SUMMARY | 2024-12-03 07:14 | XMS_ITS | Encounter Summary ---
Author Organization [employer] Address [address] [facility] 7t [place] [address] Care Team Providers Care Train System Operator Name Role Phone Almaz Osuna Primary Care Provider [phone] John Kumar MD Unavailable [phone] Reason for Visit * Reason Comments Med Refill Encounter Details Date Type Department Care Team ([facility] st Contact Info) Description 07/14/2024 Refill [facility] CHC MED & PEDS [address] [place], [place] [phone] Almaz Osuna FNP [address] [place] [address] Type 2 diabetes mellitus without complication, without long-term current use of insulin ([facility]) Social History Tobacco Use Types Packs/Day Years Used Date Smoking Tobacco: Never Passive Smoke Exposure: Never Smokeless Tobacco: Never Alcohol Use Standard Drinks/Week Comments Yes 0 (1 standard drink = 0.6 oz pur e alcohol) Rare occassions Depression Answer Date Recorded Patient Health Questionnaire-9 Score 2 04/29/2023 Housing Stability Answer Date Recorded What is your housing situation today? I have carlota patrick 04/24/[address] you li ve. Do you have problems with any of the following? None of the above 04/24/2024 Food Insecurity Answer Date Recorded Within the past 12 months, y ou worried that your food would run out before you got money to buy more: Never True 04/24/2024 Within the past 12 months,th e food you bought just didn't last and you didn't have enough money to get more: Never True Transportation Answer Date Recorded In the past 12 months, has l ack of transportation kept you from medical appts, meetings, work or from getting things needed for daily living? No 04/24/2024 Utilities Answer Date Recorded In the past 12 months, has t he electric, gas, oil or water company threatened to shut off services in your home? No 04/24/2024 Depression Answer Date Recorded Patient Health Questionnaire-2 Score 0 04/29/2023 Internet Access Answer Date Recorded Internet Access Q1 Yes 04/24/2024 Internet Access Q2 Not on file 04/24/2024 Sex and Gender Information Value Date Recorded Sex Assigned at Male 05/28/2022 10:15 AM EDT Legal Sex Male 10:15 AM EDT Gender Identity Male 05/28/2022 10:15 AM EDT Sexual Orientation Straight 05/28/2022 10 :15 AM EDT documented as of this encounter Plan of Treatment Upcoming Encounters Date Type Department Care Team (Late st Contact Info) Description 12/03/2024 11:00 AM EDT Clinical Support [facility] MED & PEDS [address] [place] [address] Nasrin Skinner, RN [address] [place] [address] 01/22/2025 2:30 PM EDT Office Visit [facility] MED & PEDS [address] [place] [address] Almaz Osuna FNP [address] [place] [address] 05/07/2025 8:00 AM EDT Office Visit [facility] ADULT DENTAL [address] [place] [address] Dora, Mariaa [address] [place] [address] documented as of this encounter Visit Diagnoses Diagnosis Type 2 diabetes mellitus without complication, without long-term current use of insulin ([facility]) documented in this encounter Additional Health Concerns Assessment Noted Time PHQ-9 Depression Total Score: 2 04/29/20 23 1:49 PM EDT documented as of this encounter Care Teams Train System Operator Relationship Specialty Start Date End Date Almaz Osuna FNP [address] [place] [address] PCP - General Family Medicine 03/27/22 John Kumar MD [address] [place] [address] Drive [address] [place] [address] Urology 09/07/24 documented as of this encounter
--- OUTSIDE RECORDS SUMMARY | 2024-12-03 07:14 | XMS_ITS | Encounter Summary ---
Author Organization [employer] Address [address] [facility] 7t [place] [address] Care Team Providers Care Wooden Fence Erector Name Role Phone Almaz Osuna Primary Care Provider [phone] John Kumar MD Unavailable [phone] Reason for Visit * Reason Comments Med Refill Encounter Details Date Type Department Care Team (Late st Contact Info) Description 02/25/2024 Refill [facility] MEDICINE [address] [place] [address] Almaz Osuna FNP [address] [place] [address] Lumbar disc herniation Social History Tobacco Use [...] Description 12/03/2024 11:00 AM EDT Clinical Support [facility] MED & PEDS [address] [place] [address] Nasrin Skinner, RN [address] [place] [address] 01/22/2025 2:30 PM EDT Office Visit [facility] MED & PEDS [address] [place] [address] Almaz Osuna FNP [address] [place] [address] 05/07/2025 8:00 AM EDT Office Visit [facility] ADULT DENTAL [address] [place] [address] Dora, Mariaa [address] [place] [address] documented as of this encounter Visit Diagnoses Diagnosis Lumbar disc herniation Displacement of lumbar intervertebral disc without myelopathy documented in this encounter Additional Health Concerns Assessment Noted Time PHQ-9 Depression Total Score: 2 04/29/20 23 1:49 PM EDT documented as of this encounter Care Teams Wooden Fence Erector Relationship Specialty Start Date End Date Almaz Osuna FNP [address] [place] [address] PCP - General Family Medicine 03/27/22 John Kumar MD [address] [place] [address] Urology 09/07/24 documented as of this encounter
--- OUTSIDE RECORDS SUMMARY | 2024-12-03 07:14 | XMS_ITS | Encounter Summary ---
Author Organization [employer] Address [address] [facility] 7t [place] [address] Care Team Providers Care Biological Technical Officer Name Role Phone Almaz Osuna Primary Care Provider [phone] John Kumar MD Unavailable [phone] Encounter Details Date Type Department Care Team (Latest Contact Info) Description 05/31/2021 Abstract [facility] CONVERSIONS Dental, Provider, DDS Social History [...] Description 12/03/2024 11:00 AM EDT Clinical Support [facility] MED & PEDS [address] [place] [address] Nasrin Skinner, RN [address] [place] [address] 01/22/2025 2:30 PM EDT Office Visit [facility] MED & PEDS [address] [place] [address] Almaz Osuna FNP [address] [place] [address] 05/07/2025 8:00 AM EDT Office Visit [facility] ADULT DENTAL [address] [place] [address] Lee Johnaris [address] [place] [address] documented as of this encounter Visit Diagnoses Not on filedocumented in this encounter Care Teams Biological Technical Officer Relationship Specialty Start Date End Date Almaz Osuna FNP [address] [place] [address] PCP - General Family Medicine 03/27/22 John Kumar MD [address] [place] [address] Drive [address] [place] [address] Urology 09/07/24 documented as of this encounter
--- OUTSIDE RECORDS SUMMARY | 2024-12-03 07:14 | XMS_ITS | Encounter Summary ---
Author Organization [employer] Address [address] [facility] 7t [place] [address] Care Team Providers Care Sport Intern Name Role Phone Almaz Osuna Primary Care Provider [phone] John Kumar MD Unavailable [phone] Reason for Visit * Reason Comments Med Refill Encounter Details Date Type Department Care Team ([facility] st Contact Info) Description 07/24/2024 Refill [facility] CHC MED & PEDS [address] [place], [place] [phone] Almaz Osuna FNP [address] [place] [address] Type 2 diabetes mellitus without complication, without long-term current use of insulin ([facility]) Social History Tobacco Use Types Packs/Day Years [...] Description 12/03/2024 11:00 AM EDT Clinical Support [facility] MED & PEDS [address] [place] [address] Nasrin Skinner, RN [address] [place] [address] 01/22/2025 2:30 PM EDT Office Visit [facility] MED & PEDS [address] [place] [address] Almaz Osuna FNP [address] [place] [address] 05/07/2025 8:00 AM EDT Office Visit [facility] ADULT DENTAL [address] [place] [address] Dora, Mariaa [address] [place] [address] documented as of this encounter Visit Diagnoses Diagnosis Type 2 diabetes mellitus without complication, without long-term current use of insulin ([facility]) documented in this encounter Additional Health Concerns Assessment Noted Time PHQ-9 Depression Total Score: 2 04/29/20 23 1:49 PM EDT documented as of this encounter Care Teams Sport Intern Relationship Specialty Start Date End Date Almaz Osuna FNP [address] [place] [address] PCP - General Family Medicine 03/27/22 John Kumar MD [address] [place] [address] Drive [address] [place] [address] Urology 09/07/24 documented as of this encounter
--- OUTSIDE RECORDS SUMMARY | 2024-12-03 07:14 | XMS_ITS | Encounter Summary ---
Author Organization [employer] Address [address] [facility] 7t [place] [address] Care Team Providers Care Supervisor Whipped Topping Name Role Phone Almaz Osuna Primary Care Provider John Kumar MD Unavailable [phone] Reason for Visit * Reason Comments Med Refill Encounter Details Date Type Department Care Team ([facility] st Contact Info) Description 07/23/2024 Refill [facility] CHC MED & PEDS [address] [place], [place] [phone] Almaz Osuna FNP [address] [place] [address] Type 2 diabetes mellitus without complication, without long-term current use of insulin ([facility]) Social History Tobacco Use Types Packs/Day Years [...] Description 12/03/2024 11:00 AM EDT Clinical Support [facility] MED & PEDS [address] [place] [address] Nasrin Skinner, RN [address] [place] [address] 01/22/2025 2:30 PM EDT Office Visit [facility] MED & PEDS [address] [place] [address] Almaz Osuna FNP [address] [place] [address] 05/07/2025 8:00 AM EDT Office Visit [facility] ADULT DENTAL [address] [place] [address] Dora, Mariaa [address] [place] [address] documented as of this encounter Visit Diagnoses Diagnosis Type 2 diabetes mellitus without complication, without long-term current use of insulin ([facility]) documented in this encounter Additional Health Concerns Assessment Noted Time PHQ-9 Depression Total Score: 2 04/29/20 23 1:49 PM EDT documented as of this encounter Care Teams Supervisor Whipped Topping Relationship Specialty Start Date End Date Almaz Osuna FNP [address] [place] [address] PCP - General Family Medicine 03/27/22 John Kumar MD [address] [place] [address] Drive [address] [place] [address] Urology 09/07/24 documented as of this encounter
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
--- OUTSIDE RECORDS SUMMARY | 2024-12-03 07:14 | XMS_ITS | Encounter Summary ---
Author Organization [employer] Address [address] [facility] [address] [place] [address] Care Team Providers Care Engineering Patternmaker Name Role Phone Almaz Osuna Primary Care Provider [phone] John Kumar MD Unavailable [phone] Reason for Visit * Reason Comments Med Refill Encounter Details Date Type Department Care Team ([facility] st Contact Info) Description 05/27/[address] [facility] [address] [place], [place] [phone] Almaz Osuna FNP [address] [place] [address] Lumbar disc herniation Social History Tobacco Use [...] Description 12/03/2024 11:00 AM EDT Clinical Support [facility] [address] [place] [address] Nasrin Skinner, FAIZA [address] [place] [address] 01/22/2025 2:30 PM EDT Office Visit [facility] [address] [place] [address] Almaz Osuna FNP [address] [place] [address] 05/07/2025 8:00 AM EDT Office Visit [facility] [address] [place] [address] Dora, Mariaa [address] [place] [address] documented as of this encounter Visit Diagnoses Diagnosis Lumbar disc herniation Displacement of lumbar intervertebral disc without myelopathy documented in this encounter Additional Health Concerns Assessment Noted Time PHQ-9 Depression Total Score: 2 04/29/20 23 1:49 PM EDT documented as of this encounter Care Teams Engineering Patternmaker Relationship Specialty Start Date End Date Almaz Osuna FNP [address] [place] [address] PCP - General Family Medicine 03/27/22 John Kumar MD [address] [place] [address] Urology 09/07/24 documented as of this encounter
--- OUTSIDE RECORDS SUMMARY | 2024-12-03 07:14 | XMS_ITS | Encounter Summary ---
Author Organization [employer] Address [address] [facility] 7t [place] [address] Care Team Providers Care Barrel Raiser Name Role Phone Almaz Osuna Primary Care Provider John Kumar MD Unavailable [phone] Reason for Visit * Reason Comments Med Refill Encounter Details Date Type Department Care Team ([facility] st Contact Info) Description 05/27/2024 Refill [facility] MED & PEDS [address] [place], [place] [phone] Almaz Osuna FNP [address] [place] [address] Lumbar disc herniation Social History Tobacco Use [...] [facility] [address] [place] [address] Nasrin Skinner, FAIZA 505 [place] [address] 01/22/2025 2:30 PM EDT Office Visit [facility] MED & PEDS [address] [place] [address] Almaz Osuna FNP [address] [place] [address] 05/07/2025 8:00 AM EDT Office Visit [facility] ADULT DENTAL [address] [place] [address] Dora, Mariaa [address] [place] [address] documented as of this encounter Visit Diagnoses Diagnosis Lumbar disc herniation Displacement of lumbar intervertebral disc without myelopathy documented in this encounter Additional Health Concerns Assessment Noted Time PHQ-9 Depression Total Score: 2 04/29/20 23 1:49 PM EDT documented as of this encounter Care Teams Barrel Raiser Relationship Specialty Start Date End Date Almaz Osuna FNP [address] [place] [address] PCP - General Family Medicine 03/27/22 John Kumar MD [address] [place] [address] Urology 09/07/24 documented as of this encounter
[2024-12-03 08:00] LABS: Hematocrit 42.4 % (42.0-52.0); Hemoglobin 14.7 g/dl (14.0-18.0); Mean Corpuscular HGB Conc 34.7 g/dl (31.0-36.0); Mean Corpuscular Hemoglobin 29.8 pg (27.0-33.0); Mean Corpuscular Volume 85.8 fL (80.0-98.0); Platelet Count 352 X10*3/uL (160-400); Red Blood Count 4.94 X10*6/uL (4.60-5.80); White Blood Count 8.9 X10*3/uL (4.8-10.8)
[2024-12-03 08:39] LABS: Prostate Specific Antigen 0.55 ng/mL (<0.05-4.0)
[2024-12-08 16:44] LABS: Testosterone, Total 118 ng/dL (250-1100)
== END 2024-12-03 07:13 | disposition home or self-care (01) ==
LOC: HO.LAB 07:12
PROVIDERS: PCP Registered Nurse; Visit Provider Urology
DX: E29.1 Testicular hypofunction (principal); Z12.5 Encounter for screening for malignant neoplasm of prostate
CPT/HCPCS: 36415; 84153; 84403; 85027

== ENCOUNTER 2024-12-17 08:07 | Outpatient (AMB) | payer MEDICARE, MEDICAID, SELFPAY ==
--- OUTSIDE RECORDS SUMMARY | 2024-12-17 08:11 | XMS_ITS | Encounter Summary ---
Author Organization [employer] Address [address] [facility] 7t [place] [address] Care Team Providers Care Stationary Engineer Supervisor Name Role Phone Almaz Osuna Primary Care Provider [phone] John Kumar MD Unavailable [phone] Reason for Visit * Reason Comments Med Refill Encounter Details Date Type Department Care Team ([facility] st Contact Info) Description 07/24/2024 Refill [facility] CH[facility] MED & PEDS [address] [place], [place] [phone] Almaz Osuna FNP 505 [place] [address] Type 2 diabetes mellitus without complication, without long-term current use of insulin ([facility]) Social History Tobacco Use Types Packs/Day Years Used Date Smoking Tobacco: Never Passive Smoke Exposure: Never Smokeless Tobacco: Never Alcohol Use Standard Drinks/Week Comments Yes 0 (1 standard drink = 0.6 oz pur e alcohol) Rare occassions Depression Answer Date Recorded Patient Health Questionnaire-9 Score 2 04/29/2023 Housing Stability Answer Date Recorded What is your housing situation today? I have carlotalouis patrick 04/24/[address] you [...] Care Team (Late st Contact Info) Description 01/22/2025 2:30 PM EDT Office Visit [facility] MED & PEDS [address] [place] [address] Almaz Osuna FNP 505 [place] [address] 03/11/2025 9:00 AM EDT Clinical Support [facility] MED & PEDS [address] [place] [address] Nasrin Skinner, RN [address] [place] [address] 05/07/2025 8:00 AM EDT Office Visit [facility] ADULT DENTAL [address] [place] [address] Dora, Mariaa [address] [place] [address] documented as of this encounter Visit Diagnoses Diagnosis Type 2 diabetes mellitus without complication, without long-term current use of insulin ([facility]) documented in this encounter Additional Health Concerns Assessment Noted Time PHQ-9 Depression Total Score: 2 04/29/20 23 1:49 PM EDT documented as of this encounter Care Teams Stationary Engineer Supervisor Relationship Specialty Start Date End Date Almaz Osuna FNP [address] [place] [address] PCP - General Family Medicine 03/27/22 John Kumar MD [address] [place] [address] [address] [place] [address] Urology 09/07/24 documented as of this encounter
--- OUTSIDE RECORDS SUMMARY | 2024-12-17 08:11 | XMS_ITS | Clinical Summary ---
Author Organization [facility], Address [address] [place] [address] [place] [address] Phone Care Team Providers Care Network Cable Installer Name Role Phone Ally Parra NP Primary Care Provider [phone] Allergies No known active allergies Medications aspirin [...] 2025 Insurance Medicare Medicaid [place] Care Teams Network Cable Installer Relationship Specialty Start Date End Date Ally Parra NP PCP - General Nurse Practitioner 10/01/19
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
--- OUTSIDE RECORDS SUMMARY | 2024-12-17 08:11 | XMS_ITS | Encounter Summary ---
Author Organization [employer] Address [address] [facility] 7t [place] [address] Care Team Providers Care Warehouse Worker 2Nd Shift Name Role Phone Almaz Osuna Primary Care Provider [phone] John Kumar MD Unavailable [phone] Reason for Visit * Reason Comments Med Refill Encounter Details Date Type Department Care Team ([facility] st Contact Info) Description 07/23/2024 Refill [facility] MED & PEDS [address] [place], [place] [phone] Almaz Osuna FNP [address] [place] [address] Type 2 diabetes mellitus without complication, without long-term current use of insulin ([facility]) Social History [...] Description 01/22/2025 2:30 PM EDT Office Visit [facility] MED & PEDS [address] [place] [address] Almaz Osuna FNP [address] [place] [address] 03/11/2025 9:00 AM EDT Clinical Support [facility] MED & PEDS [address] [place] [address] Nasrin Skinner, RN [address] [place] [address] 05/07/2025 8:00 AM EDT Office Visit [facility] ADULT DENTAL [address] [place] [address] Dora, Mariaa [address] [place] [address] documented as of this encounter Visit Diagnoses Diagnosis Type 2 diabetes mellitus without complication, without long-term current use of insulin ([facility]) documented in this encounter Additional Health Concerns Assessment Noted Time PHQ-9 Depression Total Score: 2 04/29/20 23 1:49 PM EDT documented as of this encounter Care Teams Warehouse Worker 2Nd Shift Relationship Specialty Start Date End Date Almaz Osuna FNP [address] [place] [address] PCP - General Family Medicine 03/27/22 John Kumar MD [address] [place] [address] [address] [place] [phone] Urology 09/07/24 documented as of this encounter
--- OUTSIDE RECORDS SUMMARY | 2024-12-17 08:11 | XMS_ITS | Encounter Summary ---
Author Organization [employer] Address [address] 7t [place] [address] Care Team Providers Care Supervisor Paint Department Name Role Phone Almaz Osuna Primary Care Provider [phone] John Kumar MD Unavailable [phone] Encounter Details Date Type Department Care Team ([facility] st Contact Info) Description 03/27/2024 Orders Only [facility] CHC MED & PEDS [address] [place] [address] Almaz Osuna FNP 505 [place] [address] Lumbar disc herniation Social History Tobacco Use [...] Description 01/22/2025 2:30 PM EDT Office Visit [facility] MED & PEDS [address] [place] [address] Almaz Osuna FNP 505 [place] [address] 03/11/2025 9:00 AM EDT Clinical Support [facility] MED & PEDS [address] [place] [address] Nasrin Skinner, RN 505 [place] [address] 05/07/2025 8:00 AM EDT Office Visit [facility] ADULT DENTAL [address] [place] [address] Dora, Mariaa [address] [place] [address] documented as of this encounter Procedures Procedure Name Priority Date/Time Associated Diagnosis Comments CBC Routine 12/03/2024 7:22 AM EDT Lumbar disc herniation TESTOSTERONE, TOTAL, MALES (ADULT), IA Routine 12/03/2024 7:22 AM EDT Lumbar disc herniation PSA, TOTAL Routine 12/03/2024 7:22 AM EDT Lumbar disc herniation TESTOSTERONE, TOTAL, MALES (ADULT), IA Routine 06/05/2024 7:31 AM EST Lumbar disc herniation documented in this encounter Results * (ABNORMAL) Testosterone, Total, males (Adult), IA (12/03/2024 7:22 AM EDT) Testosterone, Total 118(A) 250 - 1100 ng/dL [facility] Comment:For additional infor stephane, please refer tohttp://education.[employer]/faq/AjajxNujakrjrrpwmHIRCPCTFM085(This link is being provided for informational/educational purposes only.)This test was developed and its analytical performancecharacteristics have been determined by [employer] [place], [place]. It hasnot been cleared or approved by the U.S. Food and DrugAdministration. This assay has been validated pursuantto the CLIA regulations and is used for clinicalpurposes.THIS TEST WAS PERFORMED AT:[employer]/[id number] [place] [address]HKFLHTTTERRI BECKETT MD,PHD 12/03/2024 7:22 AM EDT 12/03/2024 7:22 AM EDT Generic External Data Provider LAB BLOOD ORDERAB LES Final Result Performing Organization Address [facility] Co de Phone Number [facility] [address] [place] [address] [phone] * PSA,Total (12/03/2024 7:22 AM EDT) Pathologist [facility] Prostate Specific Antigen 0.55 <0.05 - 4.0 ng/mL [facility] Comment:PSA methodology: Abb gloria Alinity i ChemiluminescentMicroparticle Immunoassay (CMIA) 12/03/2024 7:22 AM EDT 12/03/2024 7:22 AM EDT Generic External Data Provider LAB BLOOD ORDERAB LES Final Result Performing Organization Address City/[facility]/ZIP Co de Phone Number [facility] [address] [place] [phone] * (ABNORMAL) CBC (12/03/2024 7:22 AM EDT) White Blood Count 8.9 4.8 - 10.8 X10*3/uL [facility] Red Blood Count 4.94 4.60 - 5.80 X10*6/uL [facility] Hemoglobin 14.7 14.0 - 18.0 g/dl [facility] Hematocrit 42.4 42.0 - 52.0 % [facility] Mean Corpuscular Volume 85.8 80.0 - 98.0 fL [facility] Mean Corpuscular Hemoglobin 29.8 27.0 - 33.0 pg [facility] Mean Corpuscular HGB Conc 34.7 31.0 - 36.0 g/dl [facility] Red Cell Distribution Width 13.0 11.0 - 16.0 % [facility] Platelet Count 352 160 - 400 X10*3/uL [facility] Mean Platelet Volume 9.0(L) 9.4 - 12.4 fL [facility] NRBC Pct Auto 0.0 0.0 - 0.2 /100WBC [facility] NRBC Abs Auto 0.000 0.0 - 0.012 X10*3/uL [facility] 12/03/2024 7:22 AM EDT 12/03/2024 7:22 AM EDT us Generic External Data Provider LAB BLOOD ORDERAB LES Final Result [facility] [address] [place] [address] [phone] * Testosterone, Total, males (Adult), IA (06/05/2024 7:31 AM EST) Testosterone, Total 289 250 - 1100 ng/dL [facility] Comment:For additional infor stephane, please refer tohttp://education.[facility]/faq/XxslxWvkgpghkkdoqCIREQDVZW063(This link is being provided for informational/educational purposes only.)This test was developed and its analytical performancecharacteristics have been determined by [employer] [facility] [place], [place]. It hasnot been cleared or approved by the U.S. Food and DrugAdministration. This assay has been validated pursuantto the CLIA regulations and is used for clinicalpurposes.THIS TEST WAS PERFORMED AT:[id number] [place] [address]TSGJQXFTERRI BECKETT MD,PHD 06/05/2024 7:31 AM EST 06/05/2024 7:34 AM EST us Generic External Data Provider LAB BLOOD ORDERAB LES Final Result [facility] [address] [place] [address] [phone] documented in this encounter Visit Diagnoses Diagnosis Lumbar disc herniation Displacement of lumbar intervertebral disc without myelopathy documented in this encounter Additional Health Concerns Assessment Noted Time PHQ-9 Depression Total Score: 2 04/29/20 23 1:49 PM EDT documented as of this encounter Care Teams Supervisor Paint Department Relationship Specialty Start Date End Date Almaz Osuna FNP [address] [place] [address] PCP - General Family Medicine 03/27/22 John Kumar MD [address] [place] [address] Urology 09/07/24 documented as of this encounter
--- OUTSIDE RECORDS SUMMARY | 2024-12-17 08:11 | XMS_ITS | Encounter Summary ---
Author Organization [facility] [employer] Address [address] [place] [address] 7t [place] [address] Care Team Providers Care Air Conditioning Mechanic Industrial Name Role Phone lAmaz Osuna Primary Care Provider [phone] John Kumar MD Unavailable [phone] Encounter Details Date Type Department Care Team (Latest Contact Info) Description 05/31/2021 Abstract [facility] CONVERSIONS Dental, Provider, DDS Social History [...] Care Team ( st Contact Info) Description 01/22/2025 2:30 PM EDT Office Visit [facility] MED & PEDS [address] [place] [address] Almaz Osuna FNP 505 [place] [address] 03/11/2025 9:00 AM EDT Clinical Support [facility] MED & PEDS [address] [place] [address] Nasrin Skinner RN 505 [place] [address] 05/07/2025 8:00 AM EDT Office Visit [facility] ADULT DENTAL [address] [place] [address] Dora Mariaa [address] [place] [address] documented as of this encounter Visit Diagnoses Not on filedocumented in this encounter Care Teams Air Conditioning Mechanic Industrial Relationship Specialty Start Date End Date Almaz Osuna FNP [address] [place] [address] PCP - General Family Medicine 03/27/22 John Kumar MD [address] [place] [address] Drive [address] [place] [address] Urology 09/07/24 documented as of this encounter
--- OUTSIDE RECORDS SUMMARY | 2024-12-17 08:11 | XMS_ITS | Encounter Summary ---
Author Organization [employer] Address [address] [facility] 7t [place] [address] Care Team Providers Care Toy Packer Name Role Phone Almaz Osuna Primary Care Provider [phone] John Kumar MD Unavailable [phone] Reason for Visit * Reason Comments Med Refill Encounter Details Date Type Department Care Team ([facility] st Contact Info) Description 05/27/2024 Refill [facility] CHC MED & PEDS [address] [place], [place] [phone] Almaz Osuna FNP 505 [place] [address] Lumbar disc herniation Social History Tobacco Use [...] Description 01/22/2025 2:30 PM EDT Office Visit [facility] MED & PEDS [address] [place] [address] Almaz Osuna FNP 505 [place] [address] 03/11/2025 9:00 AM EDT Clinical Support [facility] MED & PEDS [address] [place] [address] Nasrin Skinner, RN [address] [place] [address] 05/07/2025 8:00 AM EDT Office Visit [facility] ADULT DENTAL [address] [place] [address] Dora, Mariaa [address] [place] [address] documented as of this encounter Visit Diagnoses Diagnosis Lumbar disc herniation Displacement of lumbar intervertebral disc without myelopathy documented in this encounter Additional Health Concerns Assessment Noted Time PHQ-9 Depression Total Score: 2 04/29/20 23 1:49 PM EDT documented as of this encounter Care Teams Toy Packer Relationship Specialty Start Date End Date Almaz Osuna FNP [address] [place] [address] PCP - General Family Medicine 03/27/22 John Kumar MD [address] [place] [address] Urology 09/07/24 documented as of this encounter
--- OUTSIDE RECORDS SUMMARY | 2024-12-17 08:11 | XMS_ITS | Encounter Summary ---
Author Organization [employer] Address [address] [facility] 7t [place] [address] Care Team Providers Care Passenger Service Manager Name Role Phone Almaz Osuna Primary Care Provider [phone] John Kumar MD Unavailable [phone] Reason for Visit * Reason Comments Med Refill Encounter Details Date Type Department Care Team ([facility] st Contact Info) Description 07/14/2024 Refill [facility] CHC MED & PEDS [address] [place], [place] [phone] Almaz Osuna FNP 505 [place] [address] Type 2 diabetes mellitus without complication, without long-term current use of insulin ([facility]) Social History Tobacco Use Types Packs/Day [...] 2:30 PM EDT Office Visit [facility] MED & PEDS [address] [place] [address] Almaz Osuna FNP [address] [place] [address] 03/11/2025 9:00 AM EDT Clinical Support [facility] MED & PEDS [address] [place] [address] Nasrin Skinner, RN 505 [place] [address] 05/07/2025 8:00 AM EDT Office Visit [facility] ADULT DENTAL [address] [place] [address] Dora, Mariaa [address] [place] [address] documented as of this encounter Visit Diagnoses Diagnosis Type 2 diabetes mellitus without complication, without long-term current use of insulin ([facility]) documented in this encounter Additional Health Concerns Assessment Noted Time PHQ-9 Depression Total Score: 2 04/29/20 23 1:49 PM EDT documented as of this encounter Care Teams Passenger Service Manager Relationship Specialty Start Date End Date Almaz Osuna FNP [address] [place] [address] PCP - General Family Medicine 03/27/22 John Kumar MD [address] [place] [address] Drive [address] [place] [address] Urology 09/07/24 documented as of this encounter
--- OUTSIDE RECORDS SUMMARY | 2024-12-17 08:11 | XMS_ITS | Encounter Summary ---
Author Organization [employer] Address [address] [place] [address] 7t [place] [address] Care Team Providers Care Business Reporting Developer Name Role Phone Almaz Osuna Primary Care Provider John Kumar MD Unavailable [phone] Encounter Details Date Type Department Care Team (Latest Contact Info) Description 09/29/2018 Abstract [facility] CONVERSIONS Dental, Provider, DDS Social History [...] Description 01/22/2025 2:30 PM EDT Office Visit [facility] MED & PEDS [address] [place] [address] Almaz Osuna FNP [address] [place] [address] 03/11/2025 9:00 AM EDT Clinical Support [facility] MED & PEDS [address] [place] [address] Nasrin Skinner, FAIZA 505 [place] [address] 05/07/2025 8:00 AM EDT Office Visit [facility] ADULT DENTAL [address] [place] [address] Lee Johnaris [address] [place] [address] documented as of this encounter Visit Diagnoses Not on filedocumented in this encounter Care Teams Business Reporting Developer Relationship Specialty Start Date End Date Almaz Osuna FNP [address] [place] [address] PCP - General Family Medicine 03/27/22 John Kumar MD [address] [place] [address] Drive [address] [place] [address] Urology 09/07/24 documented as of this encounter
--- OUTSIDE RECORDS SUMMARY | 2024-12-17 08:11 | XMS_ITS | Encounter Summary ---
Author Organization [employer] Address [address] [facility] 7t [place] [address] Care Team Providers Care Loss Prevention Operations Manager Name Role Phone Almaz Osuna Primary Care Provider [phone] John Kumar MD Unavailable [phone] Reason for Visit * Reason Comments Med Refill Encounter Details Date Type Department Care Team ([facility] Contact Info) Description 12/25/2022 Refill [facility] MEDICINE [address] [place], [place] [phone] Almaz Osuna FNP [address] [place], [place] [phone] Lumbar disc herniation Social History Tobacco Use [...] Upcoming Encounters Date Type Department Care Team ([facility] Contact Info) Description 01/22/2025 2:30 PM EDT Office Visit [facility] CHC MED & PEDS [address] [place] [address] Almaz Osuna FNP [address] [place] [address] 03/11/2025 9:00 AM EDT Clinical Support [facility] CHC MED & PEDS [address] [place] [address] Nasrin Skinner, RN [address] [place], [place] [phone] 05/07/2025 8:00 AM EDT Office Visit [facility] ADULT DENTAL [address] [place] [address] Dora, Mariaa [address] [place] [address] documented as of this encounter Visit Diagnoses Diagnosis Lumbar disc herniation Displacement of lumbar intervertebral disc without myelopathy documented in this encounter Care Teams Loss Prevention Operations Manager Relationship Specialty Start Date End Date Almaz Osuna FNP [address] [place] [address] PCP - General Family Medicine 03/27/22 John Kumar MD [address] [place] [address] Urology 09/07/24 documented as of this encounter
--- OUTSIDE RECORDS SUMMARY | 2024-12-17 08:11 | XMS_ITS | Encounter Summary ---
Author Organization [employer] Address [address] [facility] 7t [place] [address] Care Team Providers Care Customer Service Correspondence Clerk Name Role Phone Almaz Osuna Primary Care Provider [phone] John Kumar MD Unavailable [phone] Reason for Visit * Reason Comments Med Refill Encounter Details Date Type Department Care Team ([facility] st Contact Info) Description 05/27/2024 Refill [facility] CHC MED & PEDS [address] [place], [place] [phone] Almaz Osuna FNP [address] [place] [address] Lumbar disc herniation Social History Tobacco Use [...] 2:30 PM EDT Office Visit [facility] MED & PEDS [address] [place] [address] Almaz Osuna FNP [address] [place] [address] 03/11/2025 9:00 AM EDT Clinical Support [facility] MED & PEDS [address] [place] [address] Nasrin Skinner, RN 505 [place] [address] 05/07/2025 8:00 AM EDT Office Visit [facility] ADULT DENTAL [address] [place] [address] Dora, Mariaa [address] [place] [address] documented as of this encounter Visit Diagnoses Diagnosis Lumbar disc herniation Displacement of lumbar intervertebral disc without myelopathy documented in this encounter Additional Health Concerns Assessment Noted Time PHQ-9 Depression Total Score: 2 04/29/20 23 1:49 PM EDT documented as of this encounter Care Teams Customer Service Correspondence Clerk Relationship Specialty Start Date End Date Almaz Osuna FNP [address] [place] [address] PCP - General Family Medicine 03/27/22 John Kumar MD [address] [place] [address] Urology 09/07/24 documented as of this encounter
--- OUTSIDE RECORDS SUMMARY | 2024-12-17 08:11 | XMS_ITS | Encounter Summary ---
Author Organization [employer] Address [address] [place] [address] Care Team Providers Care Guest Relations Representative Name Role Phone Almaz Osuna Primary Care Provider [phone] John Kumar MD Unavailable [phone] Reason for Visit * Reason Comments Med Refill Encounter Details Date Type Department Care Team (Late st Contact Info) Description 02/25/2024 Refill [facility] MEDICINE [address] [place] [address] Almaz Osuna FNP [address] [place] [address] Lumbar disc herniation Social History Tobacco Use [...] Description 01/22/2025 2:30 PM EDT Office Visit [facility] MED & PEDS [address] [place] [address] Almaz Osuna FNP [address] [place] [address] 03/11/2025 9:00 AM EDT Clinical Support [facility] MED & PEDS [address] [place] [address] Nasrin Skinner, RN [address] [place] [address] 05/07/2025 8:00 AM EDT Office Visit [facility] ADULT DENTAL [address] [place] [address] Dora, Mariaa [address] [place] [address] documented as of this encounter Visit Diagnoses Diagnosis Lumbar disc herniation Displacement of lumbar intervertebral disc without myelopathy documented in this encounter Additional Health Concerns Assessment Noted Time PHQ-9 Depression Total Score: 2 04/29/20 23 1:49 PM EDT documented as of this encounter Care Teams Guest Relations Representative Relationship Specialty Start Date End Date Almaz Osuna FNP [address] [place] [address] PCP - General Family Medicine 03/27/22 John Kumar MD [address] [place] [address] [place] [address] Urology 09/07/24 documented as of this encounter
--- OUTSIDE RECORDS SUMMARY | 2024-12-17 08:11 | XMS_ITS | Clinical Summary ---
Author Organization [employer] [facility] ity Address [address] [place] [address] Care Team Providers Care Immigration Inspector Name Role Phone Unavailable Primary Care Provider [...]
--- OUTSIDE RECORDS SUMMARY | 2024-12-17 08:11 | XMS_ITS | Encounter Summary ---
Author Organization [employer] Address [address] [facility] 7t [place] [address] Care Team Providers Care Clinic Nurse Name Role Phone Almaz Osuna Primary Care Provider [phone] John Kumar MD Unavailable [phone] Reason for Visit * Reason Comments Med Refill Encounter Details Date Type Department Care Team ([facility] Contact Info) Description 10/26/2022 Refill [facility] MEDICINE [address] [place] [address] Almaz Osuna FNP [address] [place] [address] Dorsalgia Social History Tobacco Use Types Packs/Day [...] Upcoming Encounters Date Type Department Care Team ([facility] [address] Contact Info) Description 01/22/2025 2:30 PM EDT Office Visit [facility] CH[facility] MED & PEDS [address] [place], [place] [phone] Almaz Osuna FNP [address] [place] [address] 03/11/2025 9:00 AM EDT Clinical Support [facility] CHC MED & PEDS [address] [place], [place] [phone] Nasrin Skinner, FAIZA [address] [place], [place] [phone] 05/07/2025 8:00 AM EDT Office Visit [facility] ADULT DENTAL [address] [place] [address] Dora, Mariaa [address] [place] [address] documented as of this encounter Visit Diagnoses Diagnosis Dorsalgia Pain in thoracic spine documented in this encounter Care Teams Clinic Nurse Relationship Specialty Start Date End Date Almaz Osuna FNP [address] [place] [address] PCP - General Family Medicine 03/27/22 John Kumar MD [address] [place] [address] Urology 09/07/24 documented as of this encounter
--- NOTE | 2024-12-17 08:24 | A.OFFVIS_ITS ---
Intake Visit Reasons: 6M LAbs Intake Note: Patient is present for 6M LABS Urology Medication:TADALAFIL,TESTOSTERONE Antibiotic Allergy:NONE Blood Thinner:NONE Metal Technician Required: No Allergies No Known Allergies Allergy (Verified 12/17/24 08:27) HPI Comments Details: Luis Armando is a pleasant Slovenian-speaking male. He is a patient of . He is seen for the following urologic conditions - erectile dysfunction setting of diabetes - low libido - chronic opiate therapy Slovenian translation provided by qualified medical laboratory manager 6 month f/u Appears to be resistant to topical testosterone Has concerns about compliance on injectables with prior opiate history Plan trial testosterone pellets Good effect with daily tadalafil for erections Testosterone remains depressed - in setting of diabetes, chronic opioid use Erectile dysfunction in setting of diabetes Progressive Concurrent diagnosis includes chronic opiate therapy Diabetic medications include metformin and Trulicity Laboratory - T 12/18 230 F 46 HBA1c 6.6%, 09/21 T 185 FT 35, 06/21 T 290, 12/20 118 Initial therapy 5 mg daily tadalafil 20 mg on demand [facility] Medical History Diabetes High cholesterol HTN (hypertension), benign Surgical History H/O lumbar discectomy Hx of tonsillectomy Review of Systems Const Denies chills and Denies fever(s) Card Reports no additional complaints and Denies syncope Resp Denies cough GI Denies abdominal pain and Denies heartburn Reports as per HPI and Denies change in libido Neuro Denies syncope Psych Denies change in libido Endo Denies change in libido Physical Exam Const General: cooperative, healthy appearing, comfortable and no acute distress Orientation/consciousness: patient oriented x3 HEENT Face and sinus: Yes normal facial exam Mouth: moist mucous membranes Neck Neck: Yes normal visual inspection, Yes full ROM and Yes trachea midline Chest Chest palpation & inspection: normal inspection of the chest Resp Effort & Inspection: normal respiratory effort, able to speak in complete sentences and no respiratory distress GI Inspection: Yes normal to inspection Back/Spine/Pelvis Cervical Spine: normal cervical lordosis Thoracic/Lumbar Spine: thoracic and lumbar spine normal to inspection Skin General skin exam: no rashes or lesions noted Neuro General: patient oriented x3, gait normal, tone normal and moves all extremities Extrem General: Yes normal to inspection and Yes capillary refill normal Assessment & Plan Assessment & Plan (1) Erectile dysfunction associated with type 2 diabetes mellitus: Code(s): E11.69 - Type 2 diabetes mellitus with other specified complication; N52.1 - Erectile dysfunction due to diseases classified elsewhere Category: Medical (2) Hypogonadism in male: Code(s): E29.1 - Testicular hypofunction Category: Medical Plan Poor absorption testosterone gel Prior appeared history with needle phobia Recommend trial testosterone pellet Medications: Refilled tadalafil 5 mg PO DAILY 90 days 90 tabs 1RF sexual activity E11.69 - Type 2 diabetes mellitus with other specified complication, N52.1 - Erectile dysfunction due to diseases classified elsewhere Patient Instructions: This note is constructed using voice recognition software. While every effort has been made to ensure accuracy after school program teacher errors may have been included. Imaging studies, laboratory and physical exam results were discussed and reviewed in detail. No major barriers to patient understanding were identified. An opportunity to ask questions regarding the treatment plan was provided. All questions were answered. The patient expressed understanding and agreement with the above treatment plan. The patient is aware they should contact our office by phone for worsening of their current condition or the appearance of new urologic symptoms. Compliance is encouraged with any medications and followup testing that is ordered. It is a privilege to participate in the urologic care of your patient. If you have any questions or concerns regarding treatment for the above conditions, or other urologic issues, please do not hesitate to contact me. The office tel ephone contact is [phone]. Sincerely, Dr John Kumar MD, [facility] - Urology Compassionate Specialist Care for the Genitourinary System Coding Level of Care Code Est Pt Level 4 (92697) Diagnoses Erectile dysfunction associated with type 2 diabetes mellitus E11.69; N52.1 Hypogonadism in male E29.1
== END 2024-12-17 08:46 | disposition home or self-care (01) ==
LOC: HO.HUSH 08:08
PROVIDERS: PCP Registered Nurse; Visit Provider Urology
DX: E11.69 Type 2 diabetes mellitus with other specified complication (principal); N52.1 Erectile dysfunction due to diseases classified elsewhere; E29.1 Testicular hypofunction
CPT/HCPCS: 99214

== ENCOUNTER → 2024-12-17 08:07 | Outpatient (BNVA) | payer MEDICARE, MEDICAID, SELFPAY | PROVIDERS: PCP Registered Nurse; Visit Provider Urology | DX: E11.69 Type 2 diabetes mellitus with other specified complication (principal); N52.1 Erectile dysfunction due to diseases classified elsewhere; E29.1 Testicular hypofunction; Z79.84 Long term (current) use of oral hypoglycemic drugs; Z79.85 Long-term (current) use of injectable non-insulin antidiabetic drugs | CPT/HCPCS: 99212 ==

== ENCOUNTER 2025-01-22 09:34 | Outpatient (AMB) | payer MEDICARE, MEDICAID, SELFPAY ==
--- NOTE | 2025-01-22 09:33 | MHC.OFFVIS ---
Intake Visit Reasons: Testopel Intake Note: Patient is present for Testopel inj Urology Medication:TADALAFIL,TESTOSTERONE Antibiotic Allergy:NONE Blood Thinner:NONE Cardiovascular Disease Specialist Required: Yes Accompanied by: Spouse Allergies No Known Allergies Allergy (Verified 01/22/25 09:36) HPI Comments Details: Luis Armando is a pleasant Sami-speaking male. He is a patient of . He is seen for the following urologic conditions - erectile dysfunction setting of diabetes - low libido - chronic opiate therapy Sami translation provided by qualified medical device sales representative Here for testosterone pellet placement Appears to be resistant to topical testosterone Has concerns about compliance on injectables with prior opiate history Plan trial testosterone pellets Good effect with daily tadalafil for erections Testosterone remains depressed - in setting of diabetes, chronic opioid use Erectile dysfunction in setting of diabetes Progressive Concurrent diagnosis includes chronic opiate therapy Diabetic medications include metformin and Trulicity Laboratory - T 12/18 230 F 46 HBA1c 6.6%, 09/21 T 185 FT 35, 06/21 T 290, 12/20 118 Initial therapy 5 mg daily tadalafil 20 mg on demand [facility] Medical History Diabetes High cholesterol HTN (hypertension), benign Surgical History H/O lumbar discectomy Hx of tonsillectomy Review of Systems Const Denies chills and Denies fever(s) Card Reports no additional complaints and Denies syncope Resp Denies cough GI Denies abdominal pain and Denies heartburn Reports as per HPI and Denies change in libido Neuro Denies syncope Psych Denies change in libido Endo Denies change in libido Physical Exam Const General: cooperative, healthy appearing, comfortable and no acute distress Orientation/consciousness: patient oriented x3 HEENT Face and sinus: Yes normal facial exam Mouth: moist mucous membranes Neck Neck: Yes normal visual inspection, Yes full ROM and Yes trachea midline Chest Chest palpation & inspection: normal inspection of the chest Resp Effort & Inspection: normal respiratory effort, able to speak in complete sentences and no respiratory distress GI Inspection: Yes normal to inspection Back/Spine/Pelvis Cervical Spine: normal cervical lordosis Thoracic/Lumbar Spine: thoracic and lumbar spine normal to inspection Skin General skin exam: no rashes or lesions noted Neuro General: patient oriented x3, gait normal, tone normal and moves all extremities Extrem General: Yes normal to inspection and Yes capillary refill normal Office Procedures AMB Testopel Details: Testopel Placement Pre Op Diagnosis - Low testosterone Post Op Diagnosis - Low Testosterone Procedure: Testopel Insertion Testopel was prepared for insertion. Six Testopel pellets were removed from the individual glass containers and placed in a sterile container. The patient was placed in left lateral position with left side down and right side up. The area over the right hip was cleaned with Betadine. A fenestrated drape was placed over the area. Lidocaine 2% was injected first as a skin wheal and then into the subcutaneous tissue directed in a fashion down towards the femur in the subcutaneous space to perform hydrodissection. The purpose of the injection is to numb the length of the trocar track. A 15 Blade scapel was used to make a puncture incision into the subcutaneous space. Trocar with sharp-ended stylet inserted through stab incision at a 45? angle and into the subcutaneous fat layer. The needle was flatten out and advanced leaving the pellet loading area exposed. 6 pellets were inserted using Adson forceps into the loading trocar in a V pattern. The blunt stylet was used to advance pellets into the tract while withdrawing the trocar - 4 pellets and 2 pellets placed in each arm of the V. Once completed the area was wiped with alchohol. The trocar insertion site was closed with multiple steristrips and a 2x2 gauze placed with a tegaderm dressing placed. CPT 51084 J3490 Subcutaneous Hormone Pellet Insertion: 80723 Subq Hormone Pellet Insertion Office Meds Testopel 75 mg implant pellet Performing Provider: John Kumar MD Performing Location: [facility] [place] [facility] Administered by: John Kumar MD on 01/22/25 10:10 Dose Route Admin Location Dispensed Lot Number Expiration Date [facility] Polisher [employer] Sander 75 mg implant 6 ea Total Dispensed Waste 6 ea 0 % lidocaine HCl 20 mg/mL (2 %) injection solution Performing Provider: John Kumar MD Performing Location: [facility] [place] [facility] Administered by: John Kumar MD on 01/22/25 10:10 Dose Route Admin Location Dispensed Lot Number Expiration Date [facility] Polisher [employer] Sander 10 mL subcut 10 mL Total Dispensed Waste 10 mL 0 % naproxen 500 mg tablet Performing Provider: John Kumar MD Performing Location: [facility] [place] [facility] Administered by: John Kumar MD on 01/22/25 10:10 Dose Route Admin Location Dispensed Lot Number Expiration Date [employer] Polisher [employer] Sander 500 mg PO 1 tab Assessment & Plan Assessment & Plan (1) Erectile dysfunction associated with type 2 diabetes mellitus: Code(s): E11.69 - Type 2 diabetes mellitus with other specified complication; N52.1 - Erectile dysfunction due to diseases classified elsewhere Category: Medical (2) Hypogonadism in male: Code(s): E29.1 - Testicular hypofunction Category: Medical Plan Testosterone labs 2 weeks and 10 weeks Orders: Orders Testosterone, Total 10 Weeks E29.1 - Testicular hypofunction Testosterone, Total 2 Weeks E29.1 - Testicular hypofunction AMB Testosterone Pellet Implant Today E29.1 - Testicular hypofunction Medications: New testosterone (Testopel) 6 pellets every 12 weeks 75 mg subcut .once every 12 weeks 6 ea 5RF 6 months Patient Instructions: This note is constructed using voice recognition software. While every effort has been made to ensure accuracy industrial maintenance tech errors may have been included. Imaging studies, laboratory and physical exam results were discussed and reviewed in detail. No major barriers to patient understanding were identified. An opportunity to ask questions regarding the treatment plan was provided. All questions were answered. The patient expressed understanding and agreement with the above treatment plan. The patient is aware they should contact our office by phone for worsening of their current condition or the appearance of new urologic symptoms. Compliance is encouraged with any medications and followup testing that is ordered. It is a privilege to participate in the urologic care of your patient. If you have any questions or concerns regarding treatment for the above conditions, or other urologic issues, please do not hesitate to contact me. The office telephone contact is [phone]. Sincerely, Dr John Kumar MD, [facility] - Urology Compassionate Specialist Care for the Genitourinary System Coding Level of Care Code Procedure Only Diagnoses Erectile dysfunction associated with type 2 diabetes mellitus E11.69; N52.1 Hypogonadism in male E29.1
--- OUTSIDE RECORDS SUMMARY | 2025-01-22 10:00 | XMS_ITS | Clinical Summary ---
Author Organization [facility], Address [address] [place] [address] [place] [address] Phone Care Team Providers Care Steel Rigger Name Role Phone Ally Parra NP Primary Care Provider [phone] Allergies No known active allergies Medications aspirin [...] 2025 Insurance Medicare Medicaid [place] Care Teams Steel Rigger Relationship Specialty Start Date End Date Ally Parra NP PCP - General Nurse Practitioner 10/01/19
== END 2025-01-22 10:14 | disposition home or self-care (01) ==
LOC: HO.HUSH 09:35
PROVIDERS: PCP Registered Nurse; Visit Provider Urology
DX: E11.69 Type 2 diabetes mellitus with other specified complication (principal); N52.1 Erectile dysfunction due to diseases classified elsewhere; E29.1 Testicular hypofunction; Z13.9 Encounter for screening, unspecified
CPT/HCPCS: 11980

== ENCOUNTER → 2025-01-22 09:34 | Outpatient (BNVA) | payer MEDICARE, MEDICAID, SELFPAY | PROVIDERS: PCP Registered Nurse; Visit Provider Urology | DX: E11.69 Type 2 diabetes mellitus with other specified complication (principal); N52.1 Erectile dysfunction due to diseases classified elsewhere; E29.1 Testicular hypofunction | CPT/HCPCS: 11980; 81003; J2003; J3490 ==

== ENCOUNTER 2025-02-11 07:47 | Outpatient (REF) | payer MEDICARE, MEDICAID, SELFPAY ==
--- OUTSIDE RECORDS SUMMARY | 2025-02-11 07:50 | XMS_ITS | Clinical Summary ---
Author Organization [facility], Address [address] [place] [address] [place] [address] Phone Care Team Providers Care Cigarette Making Examiner Name Role Phone Ally Parra NP Primary Care Provider [phone] Allergies No known active allergies Medications aspirin [...] Colorectal Cancer Screening: Sigmoidoscopy 2022 Influenza Vaccine (#1) 2025 Insurance Medicare Medicaid [place] Care Teams Cigarette Making Examiner Relationship Specialty Start Date End Date Ally Parra NP PCP - General Nurse Practitioner 10/01/19
--- OUTSIDE RECORDS SUMMARY | 2025-02-11 07:50 | XMS_ITS | Encounter Summary ---
Author Organization [employer] Address [address] [place] [address] Care Team Providers Care Vascular Ultrasound Technician Name Role Phone Almaz Osuna Primary Care Provider [phone] John Kumar MD Unavailable [phone] Reason for Visit * Reason Comments Med Refill Encounter Details Date Type Department Care Team ([facility] Contact Info) Description 12/25/2022 Refill [facility] MED[facility] [address] [place], [place] [phone] Almaz Osuna FNP [address] [place], [place] [phone] Lumbar disc herniation Social History Tobacco Use [...] Upcoming Encounters Date Type Department Care Team ([facility] Contact Info) Description 03/11/2025 9:00 AM EDT Clinical Support [facility] PEDS [address] [place] [address] Nasrin Skinner, FAIZA [address] [place] [address] 05/07/2025 8:00 AM EDT Office Visit [facility] ADULT DENTAL [address] [place] [address] Mariaa John [address] [place] [address] documented as of this encounter Visit Diagnoses Diagnosis Lumbar disc herniation Displacement of lumbar intervertebral disc without myelopathy documented in this encounter Care Teams Vascular Ultrasound Technician Relationship Specialty Start Date End Date Almaz Osuna FNP [address] [place] [address] PCP - General Family Medicine 03/27/22 John Kumar MD [address] [place] [address] Urology 09/07/24 documented as of this encounter
--- OUTSIDE RECORDS SUMMARY | 2025-02-11 07:50 | XMS_ITS | Clinical Summary ---
Author Organization [facility] Address [address] [place] [address] Care Team Providers Care Bindery Assistant Name Role Phone Unavailable Primary Care Provider [...] - 2023-2 5 season) 2024 Influenza Vaccine (#1) 2025 HIB Vaccines Aged Out No longer [...] 5 Years) and At-Risk Patients (6 to 49 Years) Aged Out No longer eligible b ased on patient's age to complete this topic RSV Immunization Patients Un javy 20 months Aged Out No longer eligible b ased on patient's age to complete this topic Varicella Vaccines Aged Out No longer eligible based on patient's age to complete this topic
== END 2025-02-11 07:48 | disposition home or self-care (01) ==
LOC: HO.LAB 07:47
PROVIDERS: PCP Physician Assistant; Visit Provider Urology
DX: E29.1 Testicular hypofunction (principal)
CPT/HCPCS: 36415; 84403

== ENCOUNTER 2025-04-22 08:56 | Outpatient (AMB) | payer MEDICARE, MEDICAID, SELFPAY ==
--- NOTE | 2025-04-22 08:57 | A.OFFVIS_ITS ---
Intake Visit Reasons: t pellet/ labs Intake Note: patient presents today for: testo pellet/labs urology medications: tadalafil, testosterone blood thinners: none labs done 02/11/25: t-testo 473 Meeting Manager Required: No Accompanied by: Self / Same As Patient Allergies No Known Allergies Allergy (Verified 04/22/25 09:18) HPI Comments Details: Luis Armando is a pleasant Swazi-speaking male. He is a patient of . He is seen for the following urologic conditions - erectile dysfunction setting of diabetes - low libido - chronic opiate therapy Swazi translation provided by qualified medical transcriptionist Here for 2nd testosterone pellet placement Did not get 10 week labs Significant improvement in testosterone Significant clinical improvement with stock checker erections and sustained improvement in mood and well-being Pellet 1st 473 Appears to be resistant to topical testosterone Has concerns about compliance on injectables with prior opiate history Plan trial testosterone pellets Good effect with daily tadalafil for erections Testosterone remains depressed - in setting of diabetes, chronic opioid use Erectile dysfunction in setting of diabetes Progressive Concurrent diagnosis includes chronic opiate therapy Diabetic medications include metformin and Trulicity Laboratory - T 12/18 230 F 46 HBA1c 6.6%, 09/21 T 185 FT 35, 06/21 T 290, 12/20 118 Initial therapy 5 mg daily tadalafil 20 mg on demand PFSH Medical History Diabetes High cholesterol HTN (hypertension), benign Surgical History H/O lumbar discectomy Hx of tonsillectomy Review of Systems Const Denies chills and Denies fever(s) Card Reports no additional complaints and Denies syncope Resp Denies cough GI Denies abdominal pain and Denies heartburn Reports as per HPI and Denies change in libido Neuro Denies syncope Psych Denies change in libido Endo Denies change in libido Physical Exam Const General: cooperative, healthy appearing, comfortable and no acute distress Orientation/consciousness: patient oriented x3 HEENT Face and sinus: Yes normal facial exam Mouth: moist mucous membranes Neck Neck: Yes normal visual inspection, Yes full ROM and Yes trachea midline Chest Chest palpation & inspection: normal inspection of the chest Resp Effort & Inspection: normal respiratory effort, able to speak in complete sentences and no respiratory distress GI Inspection: Yes normal to inspection Back/Spine/Pelvis Cervical Spine: normal cervical lordosis Thoracic/Lumbar Spine: thoracic and lumbar spine normal to inspection Skin General skin exam: no rashes or lesions noted Neuro General: patient oriented x3, gait normal, tone normal and moves all extremities Extrem General: Yes normal to inspection and Yes capillary refill normal Office Procedures AMB Testopel Details: Testopel Placement Pre Op Diagnosis - Low testosterone Post Op Diagnosis - Low Testosterone Procedure: Testopel Insertion Testopel was prepared for insertion. Six Testopel pellets were removed from the individual glass containers and placed in a sterile container. The patient was placed in right lateral position with right side down and left side up. The area over the left hip was cleaned with Betadine. A fenestrated drape was placed over the area. Lidocaine 2% was injected first as a skin wheal and then into the subcutaneous tissue directed in a fashion down towards the femur in the subcutaneous space to perform hydrodissection. The purpose of the injection is to numb the length of the trocar track. A 11 Blade scapel was used to make a puncture incision into the subcutaneous space. Trocar with sharp-ended stylet inserted through stab incision at a 45? angle and into the subcutaneous fat layer. The needle was flatten out and advanced leaving the pellet loading area exposed. 6 pellets were inserted using Adson forceps into the loading trocar in a V pattern. The blunt stylet was used to advance pellets into the tract while withdrawing the trocar - 4 pellets and 2 pellets placed in each arm of the V. Once completed the area was wiped with alchohol. The trocar insertion site was closed with multiple steristrips and a 2x2 gauze placed with a tegaderm dressing placed. CPT 46146 J3490 Office Meds Testopel 75 mg implant pellet Performing Provider: John Kumar MD Performing Location[place] [facility] [place] [facility] Administered by: Lisa Rizzo RN on 04/22/25 09:18 Dose Route Admin Location Dispensed Lot Number Expiration Date [facility] Supervisor [facility] [place] 75 mg implant 6 ea Total Dispensed Waste 6 ea 0 % lidocaine HCl 20 mg/mL (2 %) injection solution Performing Provider: John Kumar MD Performing Location: [facility] Administered by: Lisa Rizzo RN on 04/22/25 09:18 Dose Route Admin Location Dispensed Lot Number Expiration Date NDC Supervisor [facility] 10 mL subcut 10 mL Total Dispensed Waste 10 mL 0 % Comments: Injected and implanted by Dr. Kumar Assessment & Plan Assessment & Plan (1) Erectile dysfunction associated with type 2 diabetes mellitus: Code(s): E11.69 - Type 2 diabetes mellitus with other specified complication; N52.1 - Erectile dysfunction due to diseases classified elsewhere Category: Medical (2) Hypogonadism in male: Code(s): E29.1 - Testicular hypofunction Category: Medical (3) Chronically on opiate therapy: Code(s): Z79.891 - terminal computer operator (current) use of opiate analgesic Category: Medical Plan Twelve week follow-up Orders: Orders AMB Testosterone Pellet Implant Today N18.2 - Chronic kidney disease, stage 2 (mild) Testosterone, Total 6 Weeks E29.1 - Testicular hypofunction Medications: Changed From testosterone (Testopel) 6 pellets every 12 weeks 75 mg subcut .once every 12 weeks 6 months 6 ea 5RF To testosterone (Testopel) 6 pellets every 12 weeks. 75 mg subcut .once every 12 weeks 6 ea 5RF 6 months Patient Instructions: This note is constructed using voice recognition software. While every effort has been made to ensure accuracy promotions assistant sales marketing errors may have been included. Imaging studies, laboratory and physical exam results were discussed and reviewed in detail. No major barriers to patient understanding were identified. An opportunity to ask questions regarding the treatment plan was provided. All questions were answered. The patient expressed understanding and agreement with the above treatment plan. The patient is aware they should contact our office by phone for worsening of their current condition or the appearance of new urologic symptoms. Compliance is encouraged with any medications and followup testing that is ordered. It is a privilege to participate in the urologic care of your patient. If you have any questions or concerns regarding treatment for the above conditions, or other urologic issues, please do not hesitate to contact me. The office telephone contact is [phone]. Sincerely, Dr John Kumar MD, [facility] - Urology Compassionate Specialist Care for the Genitourinary System Coding Level of Care Code Est Pt Level 3 (67753) Complex EM visit Add On G2211 Diagnoses Erectile dysfunction associated with type 2 diabetes mellitus E11.69; N52.1 Hypogonadism in male E29.1 Chronically on opiate therapy Z79.891
--- OUTSIDE RECORDS SUMMARY | 2025-04-22 09:39 | XMS_ITS | Clinical Summary ---
Author Organization [facility], Address [address] [place] [address] [place] [address] Phone Care Team Providers Care Terra Cotta Roofer Name Role Phone Ally Parra NP Primary Care Provider [phone] Allergies No known active allergies Medications [...] 2025 Insurance Medicare Medicaid [place] Care Teams Terra Cotta Roofer Relationship Specialty Start Date End Date Ally Parra NP PCP - General Nurse Practitioner 10/01/19
--- OUTSIDE RECORDS SUMMARY | 2025-04-22 09:40 | XMS_ITS | Encounter Summary ---
Author Organization [employer] Address 75 [facility] 7t [place] [address] Care Team Providers Care Motor Coach Supervisor Name Role Phone Almaz Osuna Primary Care Provider [phone] John Kumar MD Unavailable [phone] Reason for Visit * Reason Comments Med Refill Encounter Details Date Type Department Care Team ([facility] st Contact Info) Description 05/27/2024 Refill [facility] CHC MED & PEDS [address] [place], [place] [phone] Almaz Osuna FNP [address] [place] [address] Lumbar disc herniation Social History Tobacco Use Types Packs/Day Years Used Date Smoking Tobacco: Never Passive Smoke Exposure: Never Smokeless Tobacco: Never Alcohol Use Standard Drinks/Week Comments Yes 0 (1 standard drink = 0.6 oz pur e alcohol) Rare occassions Depression Answer Date Recorded Patient Health Questionnaire-9 Score 2 04/29/2023 Housing Stability Answer Date Recorded What is your housing situation today? I have carloat patrick 04/24/[address] you [...] Care Team (Late st Contact Info) Description 05/07/2025 8:00 AM EDT Office Visit [facility] ADULT DENTAL [address] [place] [address] Dora, Mariaa [address] [place] [address] 06/02/2025 9:00 AM EST Clinical Support [facility] CHC MED & PEDS [address] [place] [address] Nasrin Skinner, FAIZA [address] [place] [address] documented as of this encounter Visit Diagnoses Diagnosis Lumbar disc herniation Displacement of lumbar intervertebral disc without myelopathy documented in this encounter Additional Health Concerns Assessment Noted Time PHQ-9 Depression Total Score: 2 04/29/20 23 1:49 PM EDT documented as of this encounter Care Teams Motor Coach Supervisor Relationship Specialty Start Date End Date Almaz Osuna FNP [address] [place] [address] PCP - General Family Medicine 03/27/22 John Kumar MD [address] [place] [address] Urology 09/07/24 documented as of this encounter
--- OUTSIDE RECORDS SUMMARY | 2025-04-22 09:40 | XMS_ITS | Encounter Summary ---
Author Organization [employer] Address 75 [facility] 7t [place] [address] Care Team Providers Care Loss Prevention Specialist Name Role Phone Almaz Osuna Primary Care Provider [phone] John Kumar MD Unavailable [phone] Reason for Visit * Reason Comments Med Refill Encounter Details Date Type Department Care Team ([facility] Contact Info) Description 12/25/2022 Refill [facility] MEDICINE [address] [place] [address] Almaz Osuna FNP [address] [place] [address] Lumbar disc herniation Social History Tobacco Use [...] Department Care Team ([facility] Contact Info) Description 05/07/2025 8:00 AM EDT Office Visit [facility] ADULT DENTAL [address] [place] [address] Dora, Mariaa [address] [place] [address] 06/02/2025 9:00 AM EST Clinical Support [facility] CHC MED & PEDS [address] [place] [address] Nasrin Skinner, RN [address] [place] [address] documented as of this encounter Visit Diagnoses Diagnosis Lumbar disc herniation Displacement of lumbar intervertebral disc without myelopathy documented in this encounter Care Teams Loss Prevention Specialist Relationship Specialty Start Date End Date Almaz Osuna FNP [address] [place] [address] PCP - General Family Medicine 03/27/22 John Kumar MD [address] [place] [address] Urology 09/07/24 documented as of this encounter
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
--- OUTSIDE RECORDS SUMMARY | 2025-04-22 09:40 | XMS_ITS | Encounter Summary ---
Author Organization [employer] Address 75 [facility] 7t [place] [address] Care Team Providers Care Traffic Survey Technician Name Role Phone Almaz Osuna Primary Care Provider [phone] John Kumar MD Unavailable [phone] Reason for Visit * Reason Comments Med Refill Encounter Details Date Type Department Care Team ([facility] st Contact Info) Description 05/27/2024 Refill [facility] CHC MED & PEDS [address] [place], [place] [phone] Almaz Osuna FNP [address] [place] [address] Lumbar disc herniation Social History Tobacco Use [...] Description 05/07/2025 8:00 AM EDT Office Visit [facility] ADULT DENTAL [address] [place] [address] Dora, Mariaa [address] [place] [address] 06/02/2025 9:00 AM EST Clinical Support [facility] CHC MED & PEDS [address] [place] [address] Nasrin Skinner, FAIZA [address] [place] [address] documented as of this encounter Visit Diagnoses Diagnosis Lumbar disc herniation Displacement of lumbar intervertebral disc without myelopathy documented in this encounter Additional Health Concerns Assessment Noted Time PHQ-9 Depression Total Score: 2 04/29/20 23 1:49 PM EDT documented as of this encounter Care Teams Traffic Survey Technician Relationship Specialty Start Date End Date Almaz Osuna FNP [address] [place] [address] PCP - General Family Medicine 03/27/22 John Kumar MD [address] [place] [address] Urology 09/07/24 documented as of this encounter
--- OUTSIDE RECORDS SUMMARY | 2025-04-22 09:40 | XMS_ITS | Clinical Summary ---
Author Organization [employer] [facility] ity Address [address] [place] [address] Care Team Providers Care Adoption Agent Name Role Phone Unavailable Primary Care Provider [...] 2023 Zoster Vaccines (1 of 2) 2023 Depression Screening 07/29/2024 COVID-19 Vaccine (1 - 2023-2 5 season) 2025 Influenza Vaccine (#1) 2025 HIB Vaccines Aged [...]
--- OUTSIDE RECORDS SUMMARY | 2025-04-22 09:40 | XMS_ITS | Encounter Summary ---
Author Organization [employer] Address 75 [facility] 7t [place] [address] Care Team Providers Care Pottery Machine Operator Name Role Phone Almaz Osuna Primary Care Provider [phone] John Kumar MD Unavailable [phone] Encounter Details Date Type Department Care Team ([facility] st Contact Info) Description 12/25/2024 Orders Only [facility] MED & PEDS [address] [place] [address] Almaz Osuna FNP [address] [place] [address] Lumbar disc herniation Social History Tobacco Use [...] 8:00 AM EDT Office Visit [facility] ADULT DENTAL [address] [place] [address] Dora, Mariaa [address] [place] [address] 06/02/2025 9:00 AM EST Clinical Support [facility] CHC MED & PEDS [address] [place] [address] Nasrin Skinner, RN [address] [place] [address] documented as of this encounter Visit Diagnoses Diagnosis Lumbar disc herniation Displacement of lumbar intervertebral disc without myelopathy documented in this encounter Additional Health Concerns Assessment Noted Time PHQ-9 Depression Total Score: 2 04/29/20 23 1:49 PM EDT documented as of this encounter Care Teams Pottery Machine Operator Relationship Specialty Start Date End Date Almaz Osuna FNP [address] [place] [address] PCP - General Family Medicine 03/27/22 John Kumar MD [address] [place] [address] Urology 09/07/24 documented as of this encounter
--- OUTSIDE RECORDS SUMMARY | 2025-04-22 09:40 | XMS_ITS | Encounter Summary ---
Author Organization [facility] Address [address] [place] [address] 7t [place] [address] Care Team Providers Care Telecommunications Officer Name Role Phone Almaz Osuna Primary Care Provider [phone] John Kumar MD Unavailable [phone] Encounter Details Date Type Department Care Team (Latest Contact Info) Description 05/31/2021 Abstract [facility] CONVERSIONS Dental, Provider, DDS Social History [...] Care Team ( st Contact Info) Description 05/07/2025 8:00 AM EDT Office Visit [facility] ADULT DENTAL [address] [place] [address] Dora Mariaa [address] [place] [address] 06/02/2025 9:00 AM EST Clinical Support [facility] CHC MED & PEDS [address] [place] [address] Nasrin Skinner, FAIZA [address] [place], [place] documented as of this encounter Visit Diagnoses Not on filedocumented in this encounter Care Teams Telecommunications Officer Relationship Specialty Start Date End Date Almaz Osuna FNP [address] [place] [address] PCP - General Family Medicine 03/27/22 John Kumar MD [address] [place] [address] Drive [address] [place] [address] Urology 09/07/24 documented as of this encounter
--- OUTSIDE RECORDS SUMMARY | 2025-04-22 09:40 | XMS_ITS | Encounter Summary ---
Author Organization [employer] Address [address] [facility] 7t [place] [address] Care Team Providers Care Instrument Operator Name Role Phone Almaz Osuna Primary Care Provider [phone] John Kumar MD Unavailable [phone] Reason for Visit * Reason Comments Med Refill Encounter Details Date Type Department Care Team ([facility] Contact Info) Description 10/26/2022 Refill [facility] MEDICINE [address] [place] [address] Almaz Osuna FNP [address] [place] [address] Dorsalgia Social History Tobacco Use Types Packs/Day [...] Upcoming Encounters Date Type Department Care Team ([facility] Contact Info) Description 05/07/2025 8:00 AM EDT Office Visit [facility] ADULT DENTAL [address] [place] [address] Mariaa John [address] [place] [address] 06/02/2025 9:00 AM EST Clinical Support [facility] CHC MED & PEDS [address] [place] [address] Nasrin Skinner, RN [address] [place] [address] documented as of this encounter Visit Diagnoses Diagnosis Dorsalgia Pain in thoracic spine documented in this encounter Care Teams Instrument Operator Relationship Specialty Start Date End Date Almaz Osuna FNP [address] [place] [address] PCP - General Family Medicine 03/27/22 John Kumar MD [address] [place] [address] Urology 09/07/24 documented as of this encounter
--- OUTSIDE RECORDS SUMMARY | 2025-04-22 09:40 | XMS_ITS | Encounter Summary ---
Author Organization [employer] [facility] Address [address] [place] [address] 7t [place] [address] Care Team Providers Care Wastewater Project Manager Name Role Phone Almaz Osuna Primary Care Provider [phone] John Kumar MD Unavailable [phone] Encounter Details Date Type Department Care Team (Latest Contact Info) Description 09/29/2018 Abstract [facility] CONVERSIONS Dental, Provider, DDS Social History [...] Description 05/07/2025 8:00 AM EDT Office Visit [facility] ADULT DENTAL [address] [place] [address] Dora, Mariaa [address] [place] [address] 06/02/2025 9:00 AM EST Clinical Support [facility] CHC MED & PEDS [address] [place] [address] Nasrin Skinner, FAIZA [address] [place] [address] documented as of this encounter Visit Diagnoses Not on filedocumented in this encounter Care Teams Wastewater Project Manager Relationship Specialty Start Date End Date Almaz Osuna FNP [address] [place] [address] PCP - General Family Medicine 03/27/22 John Kumar MD [address] [place] [address] Drive [address] [place] [address] Urology 09/07/24 documented as of this encounter
--- OUTSIDE RECORDS SUMMARY | 2025-04-22 09:40 | XMS_ITS | Encounter Summary ---
Author Organization [employer] Address [address] [facility] 7t [place] [address] Care Team Providers Care Back End Engineer Name Role Phone Almaz Osuna Primary Care Provider [phone] John Kumar MD Unavailable [phone] Reason for Visit * Reason Comments Med Refill Encounter Details Date Type Department Care Team ([facility] st Contact Info) Description 07/24/2024 Refill [facility] CHC MED & PEDS [address] [place], [place] [phone] Almaz Osuna FNP [address] [place] [address] Type 2 diabetes mellitus without complication, without long-term current use of insulin ([facility]) Social History Tobacco Use Types [...] Description 05/07/2025 8:00 AM EDT Office Visit [facility] ADULT DENTAL [address] [place] [address] Dora, Mariaa [address] [place] [address] 06/02/2025 9:00 AM EST Clinical Support [facility] CHC MED & PEDS [address] [place] [address] Nasrin Skinner, RN 505 [place] [address] documented as of this encounter Visit Diagnoses Diagnosis Type 2 diabetes mellitus without complication, without long-term current use of insulin ([facility]) documented in this encounter Additional Health Concerns Assessment Noted Time PHQ-9 Depression Total Score: 2 04/29/20 23 1:49 PM EDT documented as of this encounter Care Teams Back End Engineer Relationship Specialty Start Date End Date Almaz Osuna FNP [address] [place] [address] PCP - General Family Medicine 03/27/22 John Kumar MD [address] [place] [address] Urology 09/07/24 documented as of this encounter
--- OUTSIDE RECORDS SUMMARY | 2025-04-22 09:40 | XMS_ITS | Encounter Summary ---
Author Organization [employer] Address [address] [facility] 7t [place] [address] Care Team Providers Care Flooring Machine Feeder Name Role Phone Almaz Osuna Primary Care Provider [phone] John Kumar MD Unavailable [phone] Reason for Visit * Reason Comments Med Refill Encounter Details Date Type Department Care Team ([facility] st Contact Info) Description 07/14/2024 Refill [facility] CHC MED & PEDS [address] [place], [place] [phone] Almaz Osuna FNP [address] [place] [address] Type 2 diabetes mellitus without complication, without long-term current use of insulin ([facility]) Social History Tobacco Use Types [...] Description 05/07/2025 8:00 AM EDT Office Visit [facility] ADULT DENTAL [address] [place] [address] Dora, Mariaa [address] [place] [address] 06/02/2025 9:00 AM EST Clinical Support [facility] CHC MED & PEDS [address] [place] [address] Nasrin Skinner, RN 505 [place] [address] documented as of this encounter Visit Diagnoses Diagnosis Type 2 diabetes mellitus without complication, without long-term current use of insulin ([facility]) documented in this encounter Additional Health Concerns Assessment Noted Time PHQ-9 Depression Total Score: 2 04/29/20 23 1:49 PM EDT documented as of this encounter Care Teams Flooring Machine Feeder Relationship Specialty Start Date End Date Almaz Osuna FNP [address] [place] [address] PCP - General Family Medicine 03/27/22 John Kumar MD [address] [place] [address] Urology 09/07/24 documented as of this encounter
--- OUTSIDE RECORDS SUMMARY | 2025-04-22 09:40 | XMS_ITS | Encounter Summary ---
Author Organization [employer] Address [address] [facility] [address] 7t [place] [address] Care Team Providers Care Supreme Court Judge Name Role Phone Almaz Osuna Primary Care Provider [phone] John Kumar MD Unavailable [phone] Reason for Visit * Reason Comments Med Refill Encounter Details Date Type Department Care Team (Late st Contact Info) Description 02/25/2024 Refill [facility] MEDICINE [address] [place] [address] Almaz Osuna FNP [address] [place] [address] Lumbar disc herniation Social History Tobacco Use [...] Description 05/07/2025 8:00 AM EDT Office Visit [facility] ADULT DENTAL [address] [place] [address] Dora, Mariaa [address] [place] [address] 06/02/2025 9:00 AM EST Clinical Support [facility] CHC MED & PEDS 505 [place] [address] Nasrin Skinner, RN 505 [place] [address] documented as of this encounter Visit Diagnoses Diagnosis Lumbar disc herniation Displacement of lumbar intervertebral disc without myelopathy documented in this encounter Additional Health Concerns Assessment Noted Time PHQ-9 Depression Total Score: 2 04/29/20 23 1:49 PM EDT documented as of this encounter Care Teams Supreme Court Judge Relationship Specialty Start Date End Date Almaz Osuna FNP [address] [place] [address] PCP - General Family Medicine 03/27/22 John Kumar MD [address] [place] [address] Urology 09/07/24 documented as of this encounter
--- OUTSIDE RECORDS SUMMARY | 2025-04-22 09:40 | XMS_ITS | Encounter Summary ---
Author Organization [employer] Address [address] [facility] 7t [place] [address] Care Team Providers Care Mechanical Estimator Name Role Phone Almaz Osuna Primary Care Provider [phone] John Kumar MD Unavailable [phone] Reason for Visit * Reason Comments Med Refill Encounter Details Date Type Department Care Team ([facility] st Contact Info) Description 07/23/2024 Refill [facility] CHC MED & PEDS [address] [place], [place] [phone] Almaz Osuna FNP [address] [place] [address] Type 2 diabetes mellitus without complication, without long-term current use of insulin ([facility]) Social History Tobacco Use Types [...] 8:00 AM EDT Office Visit [facility] ADULT DENTAL [address] [place] [address] Dora, Mariaa [address] [place] [address] 06/02/2025 9:00 AM EST Clinical Support [facility] CHC MED & PEDS [address] [place] [address] Nasrin Skinner, RN [address] [place] [address] documented as of this encounter Visit Diagnoses Diagnosis Type 2 diabetes mellitus without complication, without long-term current use of insulin ([facility]) documented in this encounter Additional Health Concerns Assessment Noted Time PHQ-9 Depression Total Score: 2 04/29/20 23 1:49 PM EDT documented as of this encounter Care Teams Mechanical Estimator Relationship Specialty Start Date End Date Almaz Osuna FNP [address] [place] [address] PCP - General Family Medicine 03/27/22 John Kumar MD [address] [place] [address] Urology 09/07/24 documented as of this encounter
--- OUTSIDE RECORDS SUMMARY | 2025-04-22 09:40 | XMS_ITS | Encounter Summary ---
Author Organization [employer] Address [address] [facility] [address] [address] 7t [place] [address] Care Team Providers Care Tilting Head Band Sawyer Name Role Phone Almaz Osuna Primary Care Provider John Kumar MD Unavailable [phone] Encounter Details Date Type Department Care Team ([facility] st Contact Info) Description 03/27/2024 Orders Only [facility] CHC MED & PEDS [address] [place] [address] Almaz Osuna FNP [address] [place] [address] Lumbar disc herniation Social History Tobacco Use [...] 8:00 AM EDT Office Visit [facility] ADULT DENTAL [address] [place] [address] Dora, Mariaa [address] [place] [address] 06/02/2025 9:00 AM EST Clinical Support [facility] CHC MED & PEDS [address] [place] [address] Nasrin Skinner, RN [address] [place] [address] documented as of this encounter Procedures Procedure [...] Testosterone, Total 118(A) 250 - 1100 ng/dL [facility] Comment:For additional infor matalina, please refer tohttp://education.[employer]/faq/UkhyrFytojfhiphqiZKQLWGCKN211(This link is being provided for informational/educational purposes only.)This test was developed and its analytical performancecharacteristics have been determined by [employer] [place], [place]. It hasnot been cleared or approved by the U.S. Food and DrugAdministration. This assay has been validated pursuantto the CLIA regulations and is used for clinicalpurposes.THIS TEST WAS PERFORMED AT:[employer]/[facility] [place] [address]BMDLTVKTERRI BECKETT MD,PHD 12/03/2024 7:22 AM EDT 12/03/2024 7:22 AM EDT Generic External Data Provider LAB BLOOD ORDERAB LES Final Result Performing Organization Address [facility]/ZIP Co de Phone Number [facility] [address] [place] [address] [phone] * PSA,Total (12/03/2024 7:22 AM EDT) Pathologist [facility] Prostate Specific Antigen 0.55 <0.05 - 4.0 ng/mL [facility] Comment:PSA methodology: Abb gloria Alijaciel i ChemiluminescentMicroparticle Immunoassay (CMIA) 12/03/2024 7:22 AM EDT 12/03/2024 7:22 AM EDT us Generic External Data Provider LAB BLOOD ORDERAB LES Final Result Performing Organization Address [facility]/ZIP Co de Phone Number [facility] [address] [place] [phone] * (ABNORMAL) CBC (12/03/2024 7:22 AM EDT) White Blood Count 8.9 4.8 - 10.8 X10*3/uL [facility] Red Blood Count 4.94 4.60 - 5.80 X10*6/uL [facility] Hemoglobin 14.7 14.0 - 18.0 g/dl [facility] Hematocrit 42.4 42.0 - 52.0 % [facility] Mean Corpuscular Volume 85.8 80.0 - 98.0 fL [facility] Mean Corpuscular Hemoglobin 29.8 27.0 - 33.0 pg [facility] Mean Corpuscular HGB Conc 34.7 31.0 - 36.0 g/dl [facility] Red Cell Distribution Width 13.0 11.0 - 16.0 % [facility] Platelet Count 352 160 - 400 X10*3/uL [facility] Mean Platelet Volume 9.0(L) 9.4 - 12.4 fL [facility] NRBC Pct Auto 0.0 0.0 - 0.2 /100WBC [facility] NRBC Abs Auto 0.000 0.0 - 0.012 X10*3/uL [facility] 12/03/2024 7:22 AM EDT 12/03/2024 7:22 AM EDT us Generic External Data Provider LAB BLOOD ORDERAB LES Final Result [facility] [address] [place] [phone] * Testosterone, Total, males (Adult), [place] (06/05/2024 7:31 AM EST) Testosterone, Total 289 250 - 1100 ng/dL [facility] Comment:For additional infor mation, please refer tohttp://education.[employer]/faq/[email or web address](This link is being provided for informational/educational purposes only.)This test was developed and its analytical performancecharacteristics have been determined by [employer] [place], [place]. It hasnot been cleared or approved by the U.S. Food and DrugAdministration. This assay has been validated pursuantto the CLIA regulations and is used for clinicalpurposes.THIS TEST WAS PERFORMED AT:[employer] [id number] [place] [address]KXVWPMDTERRI BECKETT MD,PHD 06/05/2024 7:31 AM EST 06/05/2024 7:34 AM EST us Generic External Data Provider LAB BLOOD ORDERAB LES Final Result [facility] [address] [place] [address] [phone] documented in this encounter Visit Diagnoses Diagnosis Lumbar disc herniation Displacement of lumbar intervertebral disc without myelopathy documented in this encounter Additional Health Concerns Assessment Noted Time PHQ-9 Depression Total Score: 2 04/29/20 23 1:49 PM EDT documented as of this encounter Care Teams Tilting Head Band Sawyer Relationship Specialty Start Date End Date Almaz Osuna FNP [address] [place] [address] PCP - General Family Medicine 03/27/22 John Kumar MD [address] [place] [address] Urology 09/07/24 documented as of this encounter
== END 2025-04-22 09:50 | disposition home or self-care (01) ==
LOC: HO.HUSH 08:57
PROVIDERS: PCP Registered Nurse; Visit Provider Urology
DX: E11.69 Type 2 diabetes mellitus with other specified complication (principal); N52.1 Erectile dysfunction due to diseases classified elsewhere; E29.1 Testicular hypofunction; Z79.891 Long term (current) use of opiate analgesic; N18.2 Chronic kidney disease, stage 2 (mild)
CPT/HCPCS: 11980; 99213

== ENCOUNTER → 2025-04-22 08:56 | Outpatient (BNVA) | payer MEDICARE, MEDICAID, SELFPAY | PROVIDERS: PCP Registered Nurse; Visit Provider Urology | DX: E29.1 Testicular hypofunction (principal); E11.69 Type 2 diabetes mellitus with other specified complication; N52.1 Erectile dysfunction due to diseases classified elsewhere; Z79.891 Long term (current) use of opiate analgesic | CPT/HCPCS: 11980; 99212; J2003; J3490 ==

== ENCOUNTER 2025-06-17 07:10 | Outpatient (REF) | payer MEDICARE, MEDICAID, SELFPAY ==
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
--- OUTSIDE RECORDS SUMMARY | 2025-06-17 07:19 | XMS_ITS | Encounter Summary ---
Author Organization [employer] Address [address] [facility] 7t [place] [address] Care Team Providers Care Taximeter Repairer Name Role Phone Almaz Osuna Primary Care Provider [phone] John Kumar MD Unavailable [phone] Reason for Visit * Reason Comments Med Refill Encounter Details Date Type Department Care Team ([facility] st Contact Info) Description 05/27/2024 Refill [facility] MED [facility] PEDS [address] [place], [place] [phone] Almaz Osuna FNP [address] [place] [address] Lumbar disc herniation Social History Tobacco Use [...] Info) Description 08/09/2025 10:00 AM EST Telemedicine [facility] MED & PEDS [address] [place] [address] Nasrin Skinner RN [address] [place] [address] 08/30/2025 10:30 AM EST Office Visit [facility] MED & PEDS [address] [place] [address] Almaz Osuna FNP [address] [place] [address] 11/08/2025 8:00 AM EDT Office Visit [facility] ADULT DENTAL [address] [place] [address] Lee Johnaris [address] [place] [address] documented as of this encounter Visit Diagnoses Diagnosis Lumbar disc herniation Displacement of lumbar intervertebral disc without myelopathy documented in this encounter Additional Health Concerns Assessment Noted Time PHQ-9 Depression Total Score: 2 04/29/20 23 1:49 PM EDT documented as of this encounter Care Teams Taximeter Repairer Relationship Specialty Start Date End Date Almaz Osuna FNP [address] [place] [address] PCP - General Family Medicine 03/27/22 John Kumar MD [address] [place] [address] Urology 09/07/24 documented as of this encounter
--- OUTSIDE RECORDS SUMMARY | 2025-06-17 07:19 | XMS_ITS | Encounter Summary ---
Author Organization [employer] Address [address] [facility] 7t [place] [address] Care Team Providers Care Commission Sales Associate Name Role Phone lAmaz Osuna Primary Care Provider [phone] John Kumar MD Unavailable [phone] Reason for Visit * Reason Comments Med Refill Encounter Details Date Type Department Care Team ([facility] Contact Info) Description 10/26/2022 Refill [facility] MEDICINE [address] [place] [address] Almaz Osuna FNP [address] [place] [address] Dorsalgia Social History Tobacco Use Types Packs/Day [...] Upcoming Encounters Date Type Department Care Team ([facility] Contact Info) Description 08/09/2025 10:00 AM EST Telemedicine [facility] MED & PEDS [address] [place] [address] Nasrin Skinner, RN [address] [place] [address] 08/30/2025 10:30 AM EST Office Visit [facility] MED & PEDS [address] [place] [address] Almaz Osuna FNP [address] [place] 11/08/2025 8:00 AM EDT Office Visit [facility] ADULT DENTAL [address] [place] [address] Dora, Mariaa [address] [place] [address] documented as of this encounter Visit Diagnoses Diagnosis Dorsalgia Pain in thoracic spine documented in this encounter Care Teams Commission Sales Associate Relationship Specialty Start Date End Date Almaz Osuna FNP [address] [place] [address] PCP - General Family Medicine 03/27/22 John Kumar MD [address] [place] [address] Urology 09/07/24 documented as of this encounter
--- OUTSIDE RECORDS SUMMARY | 2025-06-17 07:19 | XMS_ITS | Encounter Summary ---
Author Organization [employer] Address [address] [place] [address] 7t [place] [address] Care Team Providers Care Bathroom Tiling Professional Name Role Phone Almaz Osuna Primary Care Provider [phone] John Kumar MD Unavailable [phone] Encounter Details Date Type Department Care Team (Latest Contact Info) Description 09/29/2018 Abstract [facility] CONVERSIONS Dental, Provider, DDS Social History Tobacco [...] Care Team ( st Contact Info) Description 08/09/2025 10:00 AM EST Telemedicine [facility] MED & PEDS [address] [place] [address] Nasrin Skinner, RN [address] [place] [address] 08/30/2025 10:30 AM EST Office Visit [facility] MED & PEDS [address] [place] [address] Almaz Osuna FNP [address] [place] [address] 11/08/2025 8:00 AM EDT Office Visit [facility] ADULT DENTAL [address] [place] [address] Mariaa John [address] [place] [address] documented as of this encounter Visit Diagnoses Not on filedocumented in this encounter Care Teams Bathroom Tiling Professional Relationship Specialty Start Date End Date Almaz Osuna FNP [address] [place] [address] PCP - General Family Medicine 03/27/22 John Kumar MD [address] [place] [address] [address] [place] [address] Urology 09/07/24 documented as of this encounter
--- OUTSIDE RECORDS SUMMARY | 2025-06-17 07:19 | XMS_ITS | Encounter Summary ---
Author Organization [employer] Address [address] [place] [address] Care Team Providers Care Monomer Recovery Operator Name Role Phone Almaz Osuna Primary Care Provider [phone] John Kumar MD Unavailable [phone] Reason for Visit * Reason Comments Med Refill Encounter Details Date Type Department Care Team ([facility] st Contact Info) Description 06/14/2025 Refill [facility] MEDICINE [address] [place] [address] Almaz Osuna FNP [address] [place] [address] Routine health maintenance Social History Tobacco Use Types Packs/Day Years [...] Upcoming Encounters Date Type Department Care Team ([facility] st Contact Info) Description 08/09/2025 10:00 AM EST Telemedicine [facility] MED & PEDS [address] [place] [address] Nasrin Skinner RN [address] [place] [address] 08/30/2025 10:30 AM EST Office Visit [facility] MED & PEDS [address] [place] [address] Almaz Osuna FNP [address] [place] [address] 11/08/2025 8:00 AM EDT Office Visit [facility] ADULT DENTAL [address] [place] [address] Dora, Mariaa [address] [place] [address] documented as of this encounter Visit Diagnoses Diagnosis Routine health maintenance Unspecified examination documented in this encounter Additional Health Concerns Assessment Noted Time PHQ-9 Depression Total Score: 2 04/29/20 23 1:49 PM EDT documented as of this encounter Care Teams Monomer Recovery Operator Relationship Specialty Start Date End Date Almaz Osuna FNP [address] [place] [address] PCP - General Family Medicine 03/27/22 John Kumar MD [address] [place] [address] Urology 09/07/24 documented as of this encounter
--- OUTSIDE RECORDS SUMMARY | 2025-06-17 07:19 | XMS_ITS | Encounter Summary ---
Author Organization [employer] Address 75 [facility] 7t [place] [address] Care Team Providers Care Manager Legal Name Role Phone Almaz Osuna Primary Care Provider [phone] John Kumar MD Unavailable [phone] Reason for Visit * Reason Comments Med Refill Encounter Details Date Type Department Care Team ([facility] st Contact Info) Description 07/23/2024 Refill [facility] CHC MED & PEDS [address] [place], [place] [phone] Almaz Osuna FNP 505 [place] [address] Type 2 diabetes mellitus without complication, without long-term current use of insulin ([facility]) Social History Tobacco Use Types Packs/Day Years [...] Info) Description 08/09/2025 10:00 AM EST Telemedicine [facility] MED & PEDS [address] [place] [address] Nasrin Skinner, FAIZA 505 [place] [address] 08/30/2025 10:30 AM EST Office Visit [facility] MED & PEDS [address] [place] [address] Almaz Osuna FNP 505 [place] [address] 11/08/2025 8:00 AM EDT Office Visit [facility] ADULT DENTAL [address] [place] [address] Dora, Mariaa [address] [place] [address] documented as of this encounter Visit Diagnoses Diagnosis Type 2 diabetes mellitus without complication, without long-term current use of insulin (HCC) documented in this encounter Additional Health Concerns Assessment Noted Time PHQ-9 Depression Total Score: 2 04/29/20 23 1:49 PM EDT documented as of this encounter Care Teams Manager Legal Relationship Specialty Start Date End Date Almaz Osuna FNP [address] [place] [address] PCP - General Family Medicine 03/27/22 John Kumar MD [address] [place] [address] Drive [address] [place] [address] Urology 09/07/24 documented as of this encounter
--- OUTSIDE RECORDS SUMMARY | 2025-06-17 07:19 | XMS_ITS | Encounter Summary ---
Author Organization [employer] Address [address] [facility] [address] 7t [place] [address] Care Team Providers Care Lcac Radar Operator/Navigator Name Role Phone Almaz Osuna Primary Care Provider [phone] John Kumar MD Unavailable [phone] Encounter Details Date Type Department Care Team ([facility] st Contact Info) Description 03/27/2024 Orders Only [facility] CHC MED & PEDS 505 [place] [address] Almaz Osuna FNP 505 [place] [address] Lumbar disc herniation Social History Tobacco Use [...] Info) Description 08/09/2025 10:00 AM EST Telemedicine [facility] MED & PEDS 505 [place] [address] Nasrin Skinner, RN 505 [place] [address] 08/30/2025 10:30 AM EST Office Visit [facility] MED & PEDS 505 [place] [address] Almaz Osuna, TELEHEALTH CASE MANAGER [address] [place] [address] 11/08/2025 8:00 AM EDT Office Visit [facility] ADULT DENTAL [address] [place] [address] Dora, Mariaa [address] [place] [address] documented as of this encounter Procedures Procedure [...] Testosterone, Total 118(A) 250 - 1100 ng/dL [facility] Comment:For additional infor stephane, please refer tohttp://education.View [employer]/faq/Co[email or web address](This link is being provided for informational/educational purposes only.)This test was developed and its analytical performancecharacteristics have been determined by [facility] [place], [place]. It hasnot been cleared or approved by the U.S. Food and DrugAdministration. This assay has been validated pursuantto the CLIA regulations and is used for clinicalpurposes.THIS TEST WAS PERFORMED AT:[facility] [place] [id number] BECKETT MD,PHD 12/03/2024 7:22 AM EDT 12/03/2024 7:22 AM EDT Generic External Data Provider LAB BLOOD ORDERAB LES Final Result Performing Organization Address [facility] Co de Phone Number [facility] [address] [place] [phone] * PSA,Total (12/03/2024 7:22 AM EDT) Prostate Specific Antigen 0.55 <0.05 - 4.0 ng/mL [facility] Comment:PSA methodology: Abb gloria Alinity i ChemiluminescentMicroparticle Immunoassay (CMIA) 12/03/2024 7:22 AM EDT 12/03/2024 7:22 AM EDT Generic External Data Provider LAB BLOOD ORDERAB LES Final Result Performing Organization Address [facility]/ZIP Co de Phone Number [facility] [address] [place] [phone] * (ABNORMAL) CBC (12/03/2024 7:22 AM EDT) White Blood Count 8.9 4.8 - 10.8 X10*3/uL [facility] Red Blood Count 4.94 4.60 - 5.80 X10*6/uL [facility] Hemoglobin 14.7 14.0 - 18.0 g/dl [facility] Hematocrit 42.4 42.0 - 52.0 % [facility] Mean Corpuscular Volume 85.8 80.0 - 98.0 fL [facility] Mean Corpuscular Hemoglobin 29.8 27.0 - 33.0 pg [facility] Mean Corpuscular HGB Conc 34.7 31.0 - 36.0 g/dl [facility] Red Cell Distribution Width 13.0 11.0 - 16.0 % [facility] Platelet Count 352 160 - 400 X10*3/uL [facility] Mean Platelet Volume 9.0(L) 9.4 - 12.4 fL [facility] NRBC Pct Auto 0.0 0.0 - 0.2 /100WBC [facility] NRBC Abs Auto 0.000 0.0 - 0.012 X10*3/uL [facility] 12/03/2024 7:22 AM EDT 12/03/2024 7:22 AM EDT us Generic External Data Provider LAB BLOOD ORDERAB LES Final Result [facility] [address] [place] [phone] [phone] * Testosterone, Total, males (Adult), [place] (06/05/2024 7:31 AM EST) Testosterone, Total 289 250 - 1100 ng/dL [facility] Comment:For additional infor matalina, please refer tohttp://education.[employer]/faq/GzkjwWttvphmfypsqVKHFOKPQC510(This link is being provided for informational/educational purposes only.)This test was developed and its analytical performancecharacteristics have been determined by [facility] [place], [place]. It hasnot been cleared or approved by the U.S. Food and DrugAdministration. This assay has been validated pursuantto the CLIA regulations and is used for clinicalpurposes.THIS TEST WAS PERFORMED AT:[facility] [place] [address]FPNKIIRTERRI BECKETT MD,PHD 06/05/2024 7:31 AM EST 06/05/2024 7:34 AM EST us Generic External Data Provider LAB BLOOD ORDERAB LES Final Result [facility] [address] [place] [phone] [phone] documented in this encounter Visit Diagnoses Diagnosis Lumbar disc herniation Displacement of lumbar intervertebral disc without myelopathy documented in this encounter Additional Health Concerns Assessment Noted Time PHQ-9 Depression Total Score: 2 04/29/20 23 1:49 PM EDT documented as of this encounter Care Teams Lcac Radar Operator/Navigator Relationship Specialty Start Date End Date Almaz Osuna FNP [address] [place] [address] PCP - General Family Medicine 03/27/22 John Kumar MD [address] [place] [address] Urology 09/07/24 documented as of this encounter
--- OUTSIDE RECORDS SUMMARY | 2025-06-17 07:19 | XMS_ITS | Encounter Summary ---
Author Organization [employer] Address 75 [facility] 7t [place] [address] Care Team Providers Care Management Professionals Name Role Phone Almaz Osuna Primary Care Provider [phone] John Kumar MD Unavailable [phone] Encounter Details Date Type Department Care Team ([facility] st Contact Info) Description 12/25/2024 Orders Only [facility] CHC MED & PEDS [address] [place] [address] Almaz Osuna FNP 505 [place] [address] Lumbar disc herniation Social History Tobacco Use [...] Upcoming Encounters Date Type Department Care Team ([facility] st Contact Info) Description 08/09/2025 10:00 AM EST Telemedicine [facility] MED & PEDS 505 [place] [address] Nasrin Skinner, RN 505 [place] [address] 08/30/2025 10:30 AM EST Office Visit [facility] MED & PEDS [address] [place] [address] Almaz Osuna FNP [address] [place] [address] 11/08/2025 8:00 AM EDT Office Visit [facility] ADULT DENTAL [address] [place] [address] Dora, Mariaa [address] [place] [address] documented as of this encounter Visit Diagnoses Diagnosis Lumbar disc herniation Displacement of lumbar intervertebral disc without myelopathy documented in this encounter Additional Health Concerns Assessment Noted Time PHQ-9 Depression Total Score: 2 04/29/20 23 1:49 PM EDT documented as of this encounter Care Teams Management Professionals Relationship Specialty Start Date End Date Almaz Osuna FNP [address] [place] [address] PCP - General Family Medicine 03/27/22 John Kumar MD [address] [place] [address] Urology 09/07/24 documented as of this encounter
--- OUTSIDE RECORDS SUMMARY | 2025-06-17 07:19 | XMS_ITS | Encounter Summary ---
Author Organization [employer] Address [address] [facility] [address] 7t [place] [address] Care Team Providers Care Contracts Attorney Name Role Phone Almaz Osuna Primary Care Provider [phone] John Kumar MD Unavailable [phone] Reason for Visit * Reason Comments Med Refill Encounter Details Date Type Department Care Team (Late st Contact Info) Description 02/25/2024 Refill [facility] MEDICINE [address] [place] [address] Almaz Osuna FNP [address] [place] [address] Lumbar disc herniation Social History Tobacco Use [...] Info) Description 08/09/2025 10:00 AM EST Telemedicine [facility] MED & PEDS [address] [place] [address] Nasrin Skinner RN 505 [place] [address] 08/30/2025 10:30 AM EST Office Visit [facility] MED & PEDS [address] [place] [address] Almaz Osuna FNP 505 [place] [address] 11/08/2025 8:00 AM EDT Office Visit [facility] ADULT DENTAL [address] [place] [address] Dora, Mariaa [address] [place] [address] documented as of this encounter Visit Diagnoses Diagnosis Lumbar disc herniation Displacement of lumbar intervertebral disc without myelopathy documented in this encounter Additional Health Concerns Assessment Noted Time PHQ-9 Depression Total Score: 2 04/29/20 23 1:49 PM EDT documented as of this encounter Care Teams Contracts Attorney Relationship Specialty Start Date End Date Almaz Osuna FNP [address] [place] [address] PCP - General Family Medicine 03/27/22 John Kumar MD [address] [place] [address] Urology 09/07/24 documented as of this encounter
--- OUTSIDE RECORDS SUMMARY | 2025-06-17 07:19 | XMS_ITS | Encounter Summary ---
Author Organization [employer] Address [address] [facility] [address] 7t [place] [address] Care Team Providers Care Superintendent Water And Sewer Systems Name Role Phone Almaz Osuna Primary Care Provider [phone] John Kumar MD Unavailable [phone] Encounter Details Date Type Department Care Team ([facility] st Contact Info) Description 06/15/2025 Refill [facility] MEDICINE [address] [place] [address] Almaz Osuna FNP [address] [place] [address] Routine health maintenance Social History Tobacco Use [...] Info) Description 08/09/2025 10:00 AM EST Telemedicine [facility] MED & PEDS [address] [place] [address] Nasrin Skinner RN 505 [place] [address] 08/30/2025 10:30 AM EST Office Visit [facility] MED & PEDS [address] [place] [address] Almaz Osuna FNP 505 [place] [address] 11/08/2025 8:00 AM EDT Office Visit [facility] ADULT DENTAL [address] [place] [address] Dora, Mariaa [address] [place] [address] documented as of this encounter Goals Goal Patient Goal Type Associated Problems Recent Progress Patient-Stated? Author Help patients manage their type 2 diabetes Care Plan Help patients manage their type 2 diabetes No Marcelo Slaughter, PharmTravis Weekly blood pressure task Care Plan Weekly blood pressure task No Marcelo Slaughter, PharmD Help patients manage their type 2 diabetes Care Plan Help patients manage their type 2 diabetes No Marcelo Slaughter, PharmD Patient has chronic kidney disease Care Plan Patient has chronic kidney disease No Marcelo Slaughter, PharmTravis Weekly blood pressure task Care Plan Weekly blood pressure task No Rubilar, Marcelo, PharmD Patient has chronic kidney disease Care Plan Patient has chronic kidney disease No Marcelo Slaughter PharmD documented as of this encounter Visit Diagnoses Diagnosis Routine health maintenance Unspecified examination documented in this encounter Additional Health Concerns Active Problems Noted Date Diagnosed Date Help patients manage their type 2 diabetes 06/15 Weekly blood pressure task 06/15/2025 Help patients manage their type 2 diabetes 06/15 Patient has chronic kidney disease 06/15/2025 Weekly blood pressure task 06/15/2025 Patient has chronic kidney disease 06/15/2025 Assessment Noted Time PHQ-9 Depression Total Score: 2 04/29/20 23 1:49 PM EDT documented as of this encounter Care Teams Superintendent [employer] Relationship Specialty Start Date End Date Almaz Osuna FNP [address] [place] [address] PCP - General Family Medicine 03/27/22 John Kumar MD 10 [facility] [address] [place] [address] Urology 09/07/24 documented as of this encounter
--- OUTSIDE RECORDS SUMMARY | 2025-06-17 07:19 | XMS_ITS | Encounter Summary ---
Author Organization [employer] Address [address] [facility] 7t [place] [address] Care Team Providers Care Hand Frame Surgical Elastic Knitter Name Role Phone Almaz Osuna Primary Care Provider [phone] John Kumar MD Unavailable [phone] Reason for Visit * Reason Comments Med Refill Encounter Details Date Type Department Care Team ([facility] st Contact Info) Description 07/14/2024 Refill [facility] CHC MED & PEDS [address] [place], [place] [phone] Almaz Osuna FNP 505 [place] [address] Type 2 diabetes mellitus without complication, without long-term current use of insulin ([facility]) Social [...] Info) Description 08/09/2025 10:00 AM EST Telemedicine [facility] MED & PEDS [address] [place] [address] Nasrin Skinner, AFIZA 505 [place] [address] 08/30/2025 10:30 AM EST Office Visit [facility] MED & PEDS [address] [place] [address] Almaz Osuna FNP 505 [place] [address] 11/08/2025 8:00 AM EDT Office Visit [facility] ADULT DENTAL [address] [place] [address] Dora, Mariaa [address] [place] [address] documented as of this encounter Visit Diagnoses Diagnosis Type 2 diabetes mellitus without complication, without long-term current use of insulin (HCC) documented in this encounter Additional Health Concerns Assessment Noted Time PHQ-9 Depression Total Score: 2 04/29/20 23 1:49 PM EDT documented as of this encounter Care Teams Hand Frame Surgical Elastic Knitter Relationship Specialty Start Date End Date Almaz Osuna FNP [address] [place] [address] PCP - General Family Medicine 03/27/22 John Kumar MD [address] [place] [address] Drive [address] [place] [address] Urology 09/07/24 documented as of this encounter
--- OUTSIDE RECORDS SUMMARY | 2025-06-17 07:19 | XMS_ITS | Encounter Summary ---
Author Organization [employer] Address [address] [place] [address] 7t [place] [address] Care Team Providers Care Pool Attendant Name Role Phone Almaz Osuna Primary Care Provider [phone] John Kumar MD Unavailable [phone] Encounter Details Date Type Department Care Team (Latest Contact Info) Description 05/31/2021 Abstract [facility] CONVERSIONS Dental, Provider, DDS Social History Tobacco [...] Info) Description 08/09/2025 10:00 AM EST Telemedicine [facility] MED & PEDS [address] [place] [address] Nasrin Skinner, RN 505 [place] [address] 08/30/2025 10:30 AM EST Office Visit [facility] MED & PEDS [address] [place] [address] Almaz Osuna FNP 505 [place] [address] 11/08/2025 8:00 AM EDT Office Visit [facility] ADULT DENTAL [address] [place] [address] Mariaa John 230 [place] [address] documented as of this encounter Visit Diagnoses Not on filedocumented in this encounter Care Teams Pool Attendant Relationship Specialty Start Date End Date Almaz Osuna FNP [address] [place] [address] PCP - General Family Medicine 03/27/22 John Kumar MD [address] [place] [address] Drive [address] [place] [address] Urology 09/07/24 documented as of this encounter
--- OUTSIDE RECORDS SUMMARY | 2025-06-17 07:19 | XMS_ITS | Encounter Summary ---
Author Organization [employer] Address 75 [facility] 7t [place] [address] Care Team Providers Care Cardiology Nurse Name Role Phone Almaz Osuna Primary Care Provider [phone] John Kumar MD Unavailable [phone] Reason for Visit * Reason Comments Med Refill Encounter Details Date Type Department Care Team ([facility] st Contact Info) Description 05/27/2024 Refill [facility] CHC MED & PEDS 505 [place], [place] [phone] Almaz Osuna FNP 505 [place] [address] Lumbar disc herniation Social History Tobacco Use [...] Info) Description 08/09/2025 10:00 AM EST Telemedicine [facility] MED & PEDS [address] [place] [address] Nasrin Skinner RN 505 [place] [address] 08/30/2025 10:30 AM EST Office Visit [facility] MED & PEDS 505 [place] [address] Almaz Osuna FNP 505 [place] [address] 11/08/2025 8:00 AM EDT Office Visit [facility] ADULT DENTAL [address] [place] [address] Lee Johnaris [address] [place] [address] documented as of this encounter Visit Diagnoses Diagnosis Lumbar disc herniation Displacement of lumbar intervertebral disc without myelopathy documented in this encounter Additional Health Concerns Assessment Noted Time PHQ-9 Depression Total Score: 2 04/29/20 23 1:49 PM EDT documented as of this encounter Care Teams Cardiology Nurse Relationship Specialty Start Date End Date Almaz Osuna FNP [address] [place] [address] PCP - General Family Medicine 03/27/22 John Kumar MD [address] [facility] [address] [place] [address] Urology 09/07/24 documented as of this encounter
--- OUTSIDE RECORDS SUMMARY | 2025-06-17 07:19 | XMS_ITS | Clinical Summary ---
Author Organization [facility], Address [address] [place] [address] [place] [phone] Phone Care Team Providers Care Juvenile Probation Officer Name Role Phone Ally Parra NP Primary Care Provider [phone] Allergies No known active allergies Medications aspirin [...] 2025 Insurance Medicare Medicaid [place] Care Teams Juvenile Probation Officer Relationship Specialty Start Date End Date Ally Parra NP PCP - General Nurse Practitioner 10/01/19
--- OUTSIDE RECORDS SUMMARY | 2025-06-17 07:19 | XMS_ITS | Encounter Summary ---
Author Organization [employer] Address [address] [facility] 7t [place] [address] Care Team Providers Care Felting Machine Operator Helper Name Role Phone Almaz Osuna Primary Care Provider [phone] John Kumar MD Unavailable [phone] Reason for Visit * Reason Comments Med Refill Encounter Details Date Type Department Care Team ([facility] st Contact Info) Description 07/24/2024 Refill [facility] CHC MED & PEDS [address] [place], [place] [phone] Almaz Osuna FNP 505 [place] [address] Type 2 diabetes mellitus without complication, without long-term current use of insulin ([facility]) Social History Tobacco Use Types Packs/Day Years [...] Info) Description 08/09/2025 10:00 AM EST Telemedicine [facility] MED & PEDS 505 [place] [address] Nasrin Skinner, FAIZA 505 [place] [address] 08/30/2025 10:30 AM EST Office Visit [facility] MED & PEDS 505 [place] [address] Almaz Osuna FNP 505 [place] [address] 11/08/2025 8:00 AM EDT Office Visit [facility] ADULT DENTAL 230 [place] [address] Dora, Mariaa [address] [place] [address] documented as of this encounter Visit Diagnoses Diagnosis Type 2 diabetes mellitus without complication, without long-term current use of insulin (HCC) documented in this encounter Additional Health Concerns Assessment Noted Time PHQ-9 Depression Total Score: 2 04/29/20 23 1:49 PM EDT documented as of this encounter Care Teams Felting Machine Operator Helper Relationship Specialty Start Date End Date Almaz Osuna FNP [address] [place] [address] PCP - General Family Medicine 03/27/22 John Kumar MD [address] [place] [address] Drive [address] [place] [address] Urology 09/07/24 documented as of this encounter
--- OUTSIDE RECORDS SUMMARY | 2025-06-17 07:19 | XMS_ITS | Encounter Summary ---
Author Organization [employer] Address 75 [facility] 7t [place] [address] Care Team Providers Care Machine Maintenance Repairer Name Role Phone Almaz Osuna Primary Care Provider [phone] John Kumar MD Unavailable [phone] Reason for Visit * Reason Comments Med Refill Encounter Details Date Type Department Care Team ([facility] Contact Info) Description 12/25/2022 Refill [facility] MEDICINE [address] [place], [place] [phone] Almaz Osuna FNP 505 [place] [address] Lumbar disc herniation Social History Tobacco Use [...] Upcoming Encounters Date Type Department Care Team ([facility] Contact Info) Description 08/09/2025 10:00 AM EST Telemedicine [facility] CHC MED & PEDS 505 [place] [address] Nasrin Skinner, RN 505 [place] [address] 08/30/2025 10:30 AM EST Office Visit [facility] CHC MED & PEDS 505 [place] [address] Almaz Osuna FNP 505 [place] [address] 11/08/2025 8:00 AM EDT Office Visit [facility] ADULT DENTAL [address] [place] [address] Dora, Mariaa [address] [place] [address] documented as of this encounter Visit Diagnoses Diagnosis Lumbar disc herniation Displacement of lumbar intervertebral disc without myelopathy documented in this encounter Care Teams Machine Maintenance Repairer Relationship Specialty Start Date End Date Almaz Osuna FNP [address] [place] [address] PCP - General Family Medicine 03/27/22 John Kumar MD [address] [place] [address] Urology 09/07/24 documented as of this encounter
== END 2025-06-17 07:11 | disposition home or self-care (01) ==
LOC: HO.LAB 07:10
PROVIDERS: PCP Registered Nurse; Visit Provider Urology
DX: E29.1 Testicular hypofunction (principal)
CPT/HCPCS: 36415; 84403

== ENCOUNTER 2025-07-13 10:41 | Outpatient (AMB) | payer MEDICARE, MEDICAID, SELFPAY ==
--- NOTE | 2025-07-13 11:10 | MHC.OFFVIS ---
Intake Visit Reasons: Testopel insertion/testo SET (NO UA ) Intake Note: patient presents today for: testo pellet/labs urology medications: tadalafil, testosterone blood thinners: none NKDA labs done 06/17/25: t-testo 316 Alining Inspector Required: No Accompanied by: Self / Same As Patient Allergies No Known Allergies Allergy (Verified 07/13/25 11:10) HPI Comments Details: Luis Armando is a pleasant Nepali-speaking male. He is a patient of . 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 and sustained improvement in mood and well-being Pellet 1st 473 2nd 316 Appears to be resistant to topical testosterone Has concerns about compliance on injectables with prior opiate history Plan trial testosterone pellets Good effect with daily tadalafil for erections Testosterone remains depressed - in setting of diabetes, chronic opioid use Erectile dysfunction in setting of diabetes Progressive Concurrent diagnosis includes chronic opiate therapy Diabetic medications include metformin and Trulicity Laboratory - T 12/18 230 F 46 HBA1c 6.6%, 09/21 T 185 FT 35, 06/21 T 290, 12/20 118 Initial therapy 5 mg daily tadalafil 20 mg on demand REPLACED BY [facility] Medical History Diabetes High cholesterol HTN (hypertension), benign Surgical History H/O lumbar discectomy Hx of tonsillectomy Review of Systems Const Denies chills and Denies fever(s) Card Reports no additional complaints and Denies syncope Resp Denies cough GI Denies abdominal pain and Denies heartburn Reports as per HPI and Denies change in libido Neuro Denies syncope Psych Denies change in libido Endo Denies change in libido Physical Exam Const General: cooperative, healthy appearing, comfortable and no acute distress Orientation/consciousness: patient oriented x3 HEENT Face and sinus: Yes normal facial exam Mouth: moist mucous membranes Neck Neck: Yes normal visual inspection, Yes full ROM and Yes trachea midline Chest Chest palpation & inspection: normal inspection of the chest Resp Effort & Inspection: normal respiratory effort, able to speak in complete sentences and no respiratory distress GI Inspection: Yes normal to inspection Back/Spine/Pelvis Cervical Spine: normal cervical lordosis Thoracic/Lumbar Spine: thoracic and lumbar spine normal to inspection Skin General skin exam: no rashes or lesions noted Neuro General: patient oriented x3, gait normal, tone normal and moves all extremities Extrem General: Yes normal to inspection and Yes capillary refill normal Office Procedures AMB Testopel Details: Testopel Placement Pre Op Diagnosis - Low testosterone Post Op Diagnosis - Low Testosterone Procedure: Testopel Insertion The patient was placed in right lateral position with right side down and left side up. The area over the left hip was cleaned with Betadine. A fenestrated drape was placed over the area. Lidocaine 2% was injected first as a skin wheal and then into the subcutaneous tissue directed in a fashion down towards the femur in the subcutaneous space to perform hydrodissection. The purpose of the injection is to numb the length of the trocar track. Testopel was prepared for insertion. Six Testopel pellets were removed from the individual glass containers and placed in a sterile container. This gave time for the lidocaine to work. A 11 Blade scapel was used to make a puncture incision into the subcutaneous space. The trocar with a sharp-ended stylet was inserted through the stab incision at a 45? angle and into the subcutaneous fat layer. The needle was flatten out and advanced leaving the pellet loading area exposed. 6 pellets were inserted using Adson forceps into the loading trocar in a V pattern. The blunt stylet was used to advance pellets into the tract while withdrawing the trocar - 4 pellets and 2 pellets placed in each arm of the V. Once completed the area was wiped with alchohol. Pressure was applied with a small gauze for 2-3 minutes. The trocar insertion site was closed with multiple steristrips and a 2x2 gauze placed with a tegaderm dressing placed. He tolerated the procedure well and was given instructions to remove the Tegaderm dressing in 48 hours. CPT 64697 J3490 Subcutaneous Hormone Pellet Insertion: 77819 Subq Hormone Pellet Insertion Office Meds Testopel 75 mg implant pellet Performing Provider: John Kumar MD [facility] Administered by: John Kumar MD on 07/13/25 22:17 Dose Route Admin Location Dispensed Lot Number Expiration Date [facility] Family Practice Doctor 75 mg implant 6 ea Total Dispensed Waste 6 ea 0 % lidocaine HCl 20 mg/mL (2 %) injection solution Performing Provider: John Kumar MD Performing Location: [facility] Administered by: John Kumar MD on 07/13/25 22:17 Dose Route Admin Location Dispensed Lot Number Expiration Date [facility] Family [facility] Doctor 10 mL subcut 10 mL Total Dispensed Waste 10 mL 0 % Assessment & Plan Assessment & Plan (1) Chronically on opiate therapy: Code(s): 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 While every effort has been made to ensure accuracy home health speech therapist errors may have been included. Imaging studies, laboratory and physical exam results were discussed and reviewed in detail. No major barriers to patient understanding were identified. An opportunity to ask questions regarding the treatment plan was provided. All questions were answered. The patient expressed understanding and agreement with the above treatment plan. The patient is aware they should contact our office by phone for worsening of their current condition or the appearance of new urologic symptoms. Compliance is encouraged with any medications and followup testing that is ordered. It is a privilege to participate in the urologic care of your patient. If you have any questions or concerns regarding treatment for the above conditions, or other urologic issues, please do not hesitate to contact me. The office telephone contact is [phone]. Sincerely, Dr John Kumar MD, [facility] [facility] - Urology Compassionate Specialist Care for the Genitourinary System Coding Level of Care Code Est Pt Level 3 (52034) Diagnoses Chronically on opiate therapy Z79.891
--- OUTSIDE RECORDS SUMMARY | 2025-07-13 13:36 | XMS_ITS | Encounter Summary ---
Author Organization [employer] Address [address] [place] [address] [address] [place] [address] Care Team Providers Care Cloth Bleaching Supervisor Name Role Phone Almaz Osuna Primary Care Provider [phone] John Kumar MD Unavailable [phone] Encounter Details Date Type Department Care Team (Latest Contact Info) Description 09/29/2018 Abstract [facility] CONVERSIONS Dental, Provider, DDS Social History [...] Care Team ( st Contact Info) Description 07/26/2025 3:45 PM EST Office Visit [facility] [address] [place] [address] Almaz Osuna FNP [address] [place] [address] 08/09/2025 10:00 AM EST Telemedicine [facility] [address] [place] [address] Nasrin Skinner RN [address] [place] [address] 08/30/2025 10:30 AM EST Office Visit [facility] [address] [place] [address] Almaz Osuna FNP [address] [place] [address] 11/08/2025 8:00 AM EDT Office Visit [facility] ADULT DENTAL [address] [place] [address] Lee Johnaris [address] [place] [address] documented as of this encounter Visit Diagnoses Not on filedocumented in this encounter Care Teams Cloth Bleaching Supervisor Relationship Specialty Start Date End Date Almaz Osuna FNP [address] [place] [address] PCP - General Family Medicine 03/27/22 John Kumar MD [address] [place] [address] Urology 09/07/24 documented as of this encounter
--- OUTSIDE RECORDS SUMMARY | 2025-07-13 13:36 | XMS_ITS | Encounter Summary ---
Author Organization [email or web address] Address [address] [place] [address] Care Team Providers Care Bracelet Former Name Role Phone Almaz Osuna Primary Care Provider [phone] John Kumar MD Unavailable [phone] Reason for Visit * Reason Comments Med Refill Encounter Details Date Type Department Care Team ([facility] st Contact Info) Description 07/23/2024 Refill [facility] MED & PEDS [address] [place], [place] [phone] Almaz Osuna FNP [address] [place] [address] Type 2 diabetes mellitus without complication, without long-term current use of insulin ([facility]) Social History Tobacco Use Types Packs/Day [...] Care Team (Late st Contact Info) Description 07/26/2025 3:45 PM EST Office Visit [facility] MED [facility] PEDS [address] [place] [address] Almaz Osuna FNP [address] [place] [address] 08/09/2025 10:00 AM EST Telemedicine [facility] [address] [place] [address] Nasrin Skinner, RN [address] [place] [address] 08/30/2025 10:30 AM EST Office Visit [facility] [address] [place] [address] Almaz Osuna FNP [address] [place] [address] 11/08/2025 8:00 AM EDT Office Visit [facility] ADULT DENTAL [address] [place] [address] Lee Johnaris [address] [place] [address] documented as of this encounter Visit Diagnoses Diagnosis Type 2 diabetes mellitus without complication, without long-term current use of insulin (HCC) documented in this encounter Additional Health Concerns Assessment Noted Time PHQ-9 Depression Total Score: 2 04/29/20 23 1:49 PM EDT documented as of this encounter Care Teams Bracelet Former Relationship Specialty Start Date End Date Almaz Osuna FNP [address] [place] [address] PCP - General Family Medicine 03/27/22 John Kumar MD [address] [place] [address] Urology 09/07/24 documented as of this encounter
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
--- OUTSIDE RECORDS SUMMARY | 2025-07-13 13:36 | XMS_ITS | Encounter Summary ---
Author Organization [employer] Address [address] [facility] 7t [place] [address] Care Team Providers Care Laborer Marine Terminal Name Role Phone Almaz Osuna Primary Care Provider [phone] John Kumar MD Unavailable [phone] Reason for Visit * Reason Comments Med Refill Encounter Details Date Type Department Care Team ([facility] Contact Info) Description 10/26/2022 Refill [facility] MEDICINE [address] [place] [address] Almaz Osuna FNP [address] [place], [place] [phone] Dorsalgia Social History Tobacco Use Types Packs/Day [...] Upcoming Encounters Date Type Department Care Team ([facility] Contact Info) Description 07/26/2025 3:45 PM EST Office Visit [facility] CHC MED & PEDS [address] [place] [address] Almaz Osuna FNP [address] [place] [address] 08/09/2025 10:00 AM EST Telemedicine [facility] MED & PEDS 505 [place] [address] Nasrin Skinner, RN 505 [place] [address] 08/30/2025 10:30 AM EST Office Visit [facility] MED & PEDS [address] [place] [address] Almaz Osuna FNP [address] [place] [address] 11/08/2025 8:00 AM EDT Office Visit [facility] ADULT DENTAL [address] [place] [address] Dora Mariaa [address] [place] [address] documented as of this encounter Visit Diagnoses Diagnosis Dorsalgia Pain in thoracic spine documented in this encounter Care Teams Laborer Marine Terminal Relationship Specialty Start Date End Date Almaz Osuna FNP [address] [place] [address] PCP - General Family Medicine 03/27/22 John Kumar MD [address] [place] [address] Urology 09/07/24 documented as of this encounter
--- OUTSIDE RECORDS SUMMARY | 2025-07-13 13:36 | XMS_ITS | Encounter Summary ---
Author Organization [employer] Address [address] [facility] [address] 7t [place] [address] Care Team Providers Care Building Official Name Role Phone Almaz Osuna Primary Care Provider [phone] John Kumar MD Unavailable [phone] Encounter Details Date Type Department Care Team ([facility] st Contact Info) Description 03/27/2024 Orders Only [facility] CHC MED & PEDS [address] [place] [address] Almaz Osuna FNP 505 [place] [address] Lumbar disc herniation Social History Tobacco Use [...] Description 07/26/2025 3:45 PM EST Office Visit [facility] MED & PEDS [address] [place] [address] Almaz Osuna FNP 505 [place] [address] 08/09/2025 10:00 AM EST Telemedicine [facility] MED & PEDS [address] [place] [address] Nasrin Skinner, RN 505 [place] [address] 08/30/2025 10:30 AM EST Office Visit [facility] MED & PEDS [address] [place] [address] Almaz Osnua FNP 505 [place] [address] 11/08/2025 8:00 AM EDT Office Visit [facility] ADULT DENTAL [address] [place] [address] Dora, Mariaa [address] [place] [address] documented as of this encounter Procedures Procedure [...] Testosterone, Total 118(A) 250 - 1100 ng/dL [facility] Comment:For additional infor mation, please refer tohttp://education.CiDRA/faq/GkxwdPgnqoairzakzROEYJJVOL281(This link is being provided for informational/educational purposes only.)This test was developed and its analytical performancecharacteristics have been determined by [employer] [place], [place]. It hasnot been cleared or approved by the U.S. Food and DrugAdministration. This assay has been validated pursuantto the CLIA regulations and is used for clinicalpurposes.THIS TEST WAS PERFORMED AT:[employer]/YANES [id number] [place] [address]BIJEUAQTERRI BECKETT MD,PHD 12/03/2024 7:22 AM EDT 12/03/2024 7:22 AM EDT us Generic External Data Provider LAB BLOOD ORDERAB LES Final Result [facility] [address] [place] [phone] * PSA,Total (12/03/2024 7:22 AM EDT) Pathologist [facility] Prostate Specific Antigen 0.55 <0.05 - 4.0 ng/mL [facility] Comment:PSA methodology: Abb gloria Alinity i ChemiluminescentMicroparticle Immunoassay (CMIA) 12/03/2024 7:22 AM EDT 12/03/2024 7:22 AM EDT us Generic External Data Provider LAB BLOOD ORDERAB LES Final Result Performing Organization Address City/[facility]/ZIP Co de Phone Number [facility] [address] [place] [address] [phone] * (ABNORMAL) CBC (12/03/2024 7:22 AM EDT) White Blood Count 8.9 4.8 - 10.8 X10*3/uL [facility] Red Blood Count 4.94 4.60 - 5.80 X10*6/uL [facility] Hemoglobin 14.7 14.0 - 18.0 g/dl [facility] Hematocrit 42.4 42.0 - 52.0 % [facility] Mean Corpuscular Volume 85.8 80.0 - 98.0 fL [facility] Mean Corpuscular Hemoglobin 29.8 27.0 - 33.0 pg [facility] Mean Corpuscular HGB Conc 34.7 31.0 - 36.0 g/dl [facility] Red Cell Distribution Width 13.0 11.0 - 16.0 % [facility] Platelet Count 352 160 - 400 X10*3/uL [facility] Mean Platelet Volume 9.0(L) 9.4 - 12.4 fL [facility] NRBC Pct Auto 0.0 0.0 - 0.2 /100WBC [facility] NRBC Abs Auto 0.000 0.0 - 0.012 X10*3/uL [facility] 12/03/2024 7:22 AM EDT 12/03/2024 7:22 AM EDT us Generic External Data Provider LAB BLOOD ORDERAB LES Final Result Performing Organization Address [facility]/ZIP Co de Phone Number [facility] [address] [place] [phone] * Testosterone, Total, males (Adult), [place] (06/05/2024 7:31 AM EST) Testosterone, Total 289 250 - 1100 ng/dL [facility] Comment:For additional infor stephane, please refer tohttp://education.CiDRA/faq/MubwhGeusntfpqgteAEVHJZGZX454(This link is being provided for informational/educational purposes only.)This test was developed and its analytical performancecharacteristics have been determined by [employer] [place], [place]. It hasnot been cleared or approved by the U.S. Food and DrugAdministration. This assay has been validated pursuantto the CLIA regulations and is used for clinicalpurposes.THIS TEST WAS PERFORMED AT:[employer]/YANES [id number] [place] [address]LSORKOPTERRI BECKETT MD,PHD 06/05/2024 7:31 AM EST 06/05/2024 7:34 AM EST us Generic External Data Provider LAB BLOOD ORDERAB LES Final Result [facility] [address] [place] [address] [phone] documented in this encounter Visit Diagnoses Diagnosis Lumbar disc herniation Displacement of lumbar intervertebral disc without myelopathy documented in this encounter Additional Health Concerns Assessment Noted Time PHQ-9 Depression Total Score: 2 04/29/20 23 1:49 PM EDT documented as of this encounter Care Teams Building Official Relationship Specialty Start Date End Date Almaz Osuna FNP [address] [place] [address] PCP - General Family Medicine 03/27/22 John Kumar MD [address] [place] [address] Urology 09/07/24 documented as of this encounter
--- OUTSIDE RECORDS SUMMARY | 2025-07-13 13:36 | XMS_ITS | Encounter Summary ---
Author Organization [employer] Address [address] [facility] 7t [place] [address] Care Team Providers Care Assistant Administrator Name Role Phone Almaz Osuna Primary Care Provider [phone] John Kumar MD Unavailable [phone] Reason for Visit * Reason Comments Med Refill Encounter Details Date Type Department Care Team ([facility] Contact Info) Description 12/25/[address] [facility] MEDICINE [address] [place], [place] [phone] Almaz Osuna FNP [address] [place], [place] [phone] Lumbar disc herniation Social History Tobacco Use [...] Upcoming Encounters Date Type Department Care Team ([facility] Contact Info) Description 07/26/2025 3:45 PM EST Office Visit [facility] CHC MED & PEDS [address] [place], [place] [phone] Almaz Osuna FNP 505 [place] [address] 08/09/2025 10:00 AM EST Telemedicine [facility] MED & PEDS [address] [place] [address] Nasrin Skinner, RN [address] [place] [address] 08/30/2025 10:30 AM EST Office Visit [facility] MED & PEDS [address] [place] [address] Almaz Osuna FNP 505 [place] [address] 11/08/2025 8:00 AM EDT Office Visit [facility] ADULT DENTAL [address] [place] [address] Dora Mariaa [address] [place] [address] documented as of this encounter Visit Diagnoses Diagnosis Lumbar disc herniation Displacement of lumbar intervertebral disc without myelopathy documented in this encounter Care Teams Assistant Administrator Relationship Specialty Start Date End Date Almaz Osuna FNP [address] [place] [address] PCP - General Family Medicine 03/27/22 John Kumar MD [address] [place] [address] Urology 09/07/24 documented as of this encounter
--- OUTSIDE RECORDS SUMMARY | 2025-07-13 13:36 | XMS_ITS | Encounter Summary ---
Author Organization [employer] Address [address] [place] [address] 7t [place] [address] Care Team Providers Care Shipping Supervisor Name Role Phone Almaz Osuna Primary Care Provider [phone] John Kumar MD Unavailable [phone] Encounter Details Date Type Department Care Team (Latest Contact Info) Description 05/31/2021 Abstract [facility] CONVERSIONS Dental, Provider, DDS Social [...] Description 07/26/2025 3:45 PM EST Office Visit [facility] MED & PEDS [address] [place] [address] Almaz Osuna FNP 505 [place] [address] 08/09/2025 10:00 AM EST Telemedicine [facility] MED & PEDS [address] [place] [address] Nasrin Skinner RN [address] [place] [address] 08/30/2025 10:30 AM EST Office Visit [facility] MED & PEDS [address] [place] [address] Almaz Osuna FNP 505 [place] [address] 11/08/2025 8:00 AM EDT Office Visit [facility] ADULT DENTAL [address] [place] [address] Lee Johnaris 230 [place] [address] documented as of this encounter Visit Diagnoses Not on filedocumented in this encounter Care Teams Shipping Supervisor Relationship Specialty Start Date End Date Almaz Osuna FNP [address] [place] [address] PCP - General Family Medicine 03/27/22 John Kumar MD [address] [place] [address] Urology 09/07/24 documented as of this encounter
--- OUTSIDE RECORDS SUMMARY | 2025-07-13 13:36 | XMS_ITS | Encounter Summary ---
Author Organization [employer] Address [address] [facility] 7t [place] [address] Care Team Providers Care Groundskeeping Maintenance Name Role Phone Almaz Osuna Primary Care Provider John Kumar MD Unavailable [phone] Reason for Visit * Reason Comments Med Refill Encounter Details Date Type Department Care Team ([facility] st Contact Info) Description 05/27/2024 Refill [facility] CHC MED & PEDS [address] [place], [place] [phone] Almaz Osuna FNP 505 [place] [address] Lumbar disc herniation Social History Tobacco Use [...] 07/26/2025 3:45 PM EST Office Visit [facility] MED & PEDS 505 [place] [address] Almaz Osuna FNP 505 [place] [address] 08/09/2025 10:00 AM EST Telemedicine [facility] MED & PEDS 505 [place] [address] Nasrin Skinner RN 505 [place] [address] 08/30/2025 10:30 AM EST Office Visit [facility] MED & PEDS 505 [place] [address] Almaz Osuna FNP 505 [place] [address] 11/08/2025 8:00 AM EDT Office Visit [facility] ADULT DENTAL 230 [place] [address] Dora, Mariaa [address] [place] [address] documented as of this encounter Visit Diagnoses Diagnosis Lumbar disc herniation Displacement of lumbar intervertebral disc without myelopathy documented in this encounter Additional Health Concerns Assessment Noted Time PHQ-9 Depression Total Score: 2 04/29/20 23 1:49 PM EDT documented as of this encounter Care Teams Groundskeeping Maintenance Relationship Specialty Start Date End Date Almaz Osuna FNP [address] [place] [address] PCP - General Family Medicine 03/27/22 John Kumar MD [address] [place] [address] Urology 09/07/24 documented as of this encounter
--- OUTSIDE RECORDS SUMMARY | 2025-07-13 13:36 | XMS_ITS | Encounter Summary ---
Author Organization [employer] Address [address] [facility] 7t [place] [address] Care Team Providers Care Dismantler Name Role Phone Almaz Osuna Primary Care Provider [phone] John Kumar MD Unavailable [phone] Encounter Details Date Type Department Care Team ([facility] st Contact Info) Description 12/25/2024 Orders Only [facility] CHC MED & PEDS [address] [place] [address] Almaz Osuna FNP 505 [place] [address] Lumbar disc herniation Social History Tobacco Use [...] Description 07/26/2025 3:45 PM EST Office Visit [facility] MED & PEDS 505 [place] [address] Almaz Osuna FNP 505 [place] [address] 08/09/2025 10:00 AM EST Telemedicine [facility] MED & PEDS [address] [place] [address] Nasrin Skinner RN 505 [place] [address] 08/30/2025 10:30 AM EST Office Visit [facility] MED & PEDS [address] [place] [address] Almaz Osuna FNP 505 [place] [address] 11/08/2025 8:00 AM EDT Office Visit [facility] ADULT DENTAL [address] [place] [address] Dora, Mariaa [address] [place] [address] documented as of this encounter Visit Diagnoses Diagnosis Lumbar disc herniation Displacement of lumbar intervertebral disc without myelopathy documented in this encounter Additional Health Concerns Assessment Noted Time PHQ-9 Depression Total Score: 2 04/29/20 23 1:49 PM EDT documented as of this encounter Care Teams Dismantler Relationship Specialty Start Date End Date Almaz Osuna FNP [address] [place] [address] PCP - General Family Medicine 03/27/22 John Kumar MD [address] [place] [address] Urology 09/07/24 documented as of this encounter
--- OUTSIDE RECORDS SUMMARY | 2025-07-13 13:36 | XMS_ITS | Clinical Summary ---
Author Organization [employer] [facility] ity Address [address] [place] [address] Care Team Providers Care Bookstore Clerk Name Role Phone Unavailable Primary Care Provider [...] Depression Screening 07/29/2024 COVID-19 Vaccine (1 - 2024-2 6 season) 2025 Influenza Vaccine (#1) 2025 RSV Immunization Adult Patie nts (1 - 1-dose 75+ series) 2048 HIB Vaccines Aged Out No longer eligi [...]
--- OUTSIDE RECORDS SUMMARY | 2025-07-13 13:36 | XMS_ITS | Encounter Summary ---
Author Organization [employer] Address [address] [facility] 7t [place] [address] Care Team Providers Care Map Maker Name Role Phone Almaz Osuna Primary Care Provider [phone] John Kumar MD Unavailable [phone] Reason for Visit * Reason Comments Med Refill Encounter Details Date Type Department Care Team ([facility] st Contact Info) Description 07/24/2024 Refill [facility] CHC MED & PEDS [address] [place], [place] [phone] Almaz Osuna FNP 505 [place] [address] Type 2 diabetes mellitus without complication, without long-term current use of insulin ([facility]) Social History Tobacco Use Types Packs/Day [...] [facility] MED & PEDS [address] [place] [address] Almaz Osuna FNP [address] [place] [address] 08/09/2025 10:00 AM EST Telemedicine [facility] MED & PEDS 505 [place] [address] Nasrin Skinner, RN 505 [place] [address] 08/30/2025 10:30 AM EST Office Visit [facility] MED & PEDS [address] [place] [address] Almaz Osuna FNP 505 [place] [address] 11/08/2025 8:00 AM EDT Office Visit [facility] ADULT DENTAL [address] [place] [address] Lee Johnaris [address] [place] [address] documented as of this encounter Visit Diagnoses Diagnosis Type 2 diabetes mellitus without complication, without long-term current use of insulin (HCC) documented in this encounter Additional Health Concerns Assessment Noted Time PHQ-9 Depression Total Score: 2 04/29/20 23 1:49 PM EDT documented as of this encounter Care Teams Map Maker Relationship Specialty Start Date End Date Almaz Osuna FNP 230 [place] [address] PCP - General Family Medicine 03/27/22 John Kumar MD [address] [place] [address] Urology 09/07/24 documented as of this encounter
--- OUTSIDE RECORDS SUMMARY | 2025-07-13 13:36 | XMS_ITS | Encounter Summary ---
Author Organization [employer] Address [address] [facility] 7t [place] [address] Care Team Providers Care Geriatric Physician Name Role Phone Almaz Osuna Primary Care Provider [phone] John Kumar MD Unavailable [phone] Reason for Visit * Reason Comments Med Refill Encounter Details Date Type Department Care Team ([facility] st Contact Info) Description 05/27/2024 Refill [facility] CHC MED & PEDS [address] [place], [place] [phone] Almaz Osuna FNP 505 [place] [address] Lumbar disc herniation Social History Tobacco Use [...] Description 07/26/2025 3:45 PM EST Office Visit [facility] MED & PEDS 505 [place] [address] Almaz Osuna FNP 505 [place] [address] 08/09/2025 10:00 AM EST Telemedicine [facility] MED & PEDS [address] [place] [address] Nasrin Skinner RN [address] [place] [address] 08/30/2025 10:30 AM EST Office Visit [facility] MED & PEDS [address] [place] [address] Almaz Osuna FNP 505 [place] [address] 11/08/2025 8:00 AM EDT Office Visit [facility] ADULT DENTAL [address] [place] [address] Dora, Mariaa [address] [place] [address] documented as of this encounter Visit Diagnoses Diagnosis Lumbar disc herniation Displacement of lumbar intervertebral disc without myelopathy documented in this encounter Additional Health Concerns Assessment Noted Time PHQ-9 Depression Total Score: 2 04/29/20 23 1:49 PM EDT documented as of this encounter Care Teams Geriatric Physician Relationship Specialty Start Date End Date Almaz Osuna FNP [address] [place] [address] PCP - General Family Medicine 03/27/22 John Kumar MD [address] [place] [address] Urology 09/07/24 documented as of this encounter
--- OUTSIDE RECORDS SUMMARY | 2025-07-13 13:36 | XMS_ITS | Encounter Summary ---
Author Organization [employer] Address [address] [facility] [address] 7t [place] [address] Care Team Providers Care Lab Animal Technologist Name Role Phone Almaz Osuna Primary Care Provider [phone] John Kumar MD Unavailable [phone] Reason for Visit * Reason Comments Med Refill Encounter Details Date Type Department Care Team (Late st Contact Info) Description 02/25/2024 Refill [facility] MEDICINE [address] [place] [address] Almaz Osuna FNP [address] [place] [address] Lumbar disc herniation Social History Tobacco Use [...] Description 07/26/2025 3:45 PM EST Office Visit [facility] MED & PEDS 505 [place] [address] Almaz Osuna FNP 505 [place] [address] 08/09/2025 10:00 AM EST Telemedicine [facility] MED & PEDS [address] [place] [address] Nasrin Skinner, RN 505 [place] [address] 08/30/2025 10:30 AM EST Office Visit [facility] MED & PEDS [address] [place] [address] Almaz Osuna FNP 505 [place] [address] 11/08/2025 8:00 AM EDT Office Visit [facility] ADULT DENTAL [address] [place] [address] Dora Mariaa [address] [place] [address] documented as of this encounter Visit Diagnoses Diagnosis Lumbar disc herniation Displacement of lumbar intervertebral disc without myelopathy documented in this encounter Additional Health Concerns Assessment Noted Time PHQ-9 Depression Total Score: 2 04/29/20 23 1:49 PM EDT documented as of this encounter Care Teams Lab Animal Technologist Relationship Specialty Start Date End Date Almaz Osuna FNP [address] [place] [address] PCP - General Family Medicine 03/27/22 John Kumar MD [address] [place] [address] Urology 09/07/24 documented as of this encounter
--- OUTSIDE RECORDS SUMMARY | 2025-07-13 13:36 | XMS_ITS | Encounter Summary ---
Author Organization [employer] Address [address] [facility] 7t [place] [address] Care Team Providers Care House Builder Name Role Phone Almaz Osuna Primary Care Provider [phone] John Kumar MD Unavailable [phone] Reason for Visit * Reason Comments Med Refill Encounter Details Date Type Department Care Team ([facility] st Contact Info) Description 07/14/2024 Refill [facility] CHC MED & PEDS [address] [place], [place] [phone] Almza Osuna FNP 505 [place] [address] Type 2 diabetes mellitus without complication, without long-term current use of insulin ([facility]) Social History Tobacco Use Types [...] [facility] MED & PEDS 505 [place] [address] Almaz Osuna FNP 505 [place] [address] 08/09/2025 10:00 AM EST Telemedicine [facility] MED & PEDS 505 [place] [address] Nasrin Skinner, RN 505 [place] [address] 08/30/2025 10:30 AM EST Office Visit [facility] MED & PEDS [address] [place] [address] Almaz Osuna FNP [address] [place] [address] 11/08/2025 8:00 AM EDT Office Visit [facility] ADULT DENTAL [address] [place] [address] Lee Johnaris [address] [place] [address] documented as of this encounter Visit Diagnoses Diagnosis Type 2 diabetes mellitus without complication, without long-term current use of insulin (HCC) documented in this encounter Additional Health Concerns Assessment Noted Time PHQ-9 Depression Total Score: 2 04/29/20 23 1:49 PM EDT documented as of this encounter Care Teams House Builder Relationship Specialty Start Date End Date Almaz Osuna FNP [address] [place] [address] PCP - General Family Medicine 03/27/22 John Kumar MD [address] [place] [address] Urology 09/07/24 documented as of this encounter
== END 2025-07-13 12:17 | disposition home or self-care (01) ==
LOC: HO.HUSH 10:41
PROVIDERS: PCP Registered Nurse; Visit Provider Urology
DX: E29.1 Testicular hypofunction (principal); Z79.891 Long term (current) use of opiate analgesic
CPT/HCPCS: 11980; 99213

== ENCOUNTER → 2025-07-13 10:41 | Outpatient (BNVA) | payer MEDICARE, MEDICAID, SELFPAY | PROVIDERS: PCP Registered Nurse; Visit Provider Urology | DX: E29.1 Testicular hypofunction (principal) | CPT/HCPCS: 11980; 99212; J2003; J3490 ==